=== PATIENT | male | born 1940 | race Caucasian/White ===

== ENCOUNTER 2021-04-26 21:49 | Emergency (ER) | payer OTHER ==
[~2021-04-26] VITALS: Ht 172.7 cm; Wt 76.2 kg
[~2021-04-26 21:49] MED LIST: CEFP200 PO; OMEP20ER PO
[2021-04-26 22:31] LABS: BASOPHILS ABSOLUTE AUTO 0.04 K/mm3 (0.00-0.23); BASOPHILS PERCENT AUTO 1 % (0-2); EOSINOPHILS ABSOLUTE AUTO 0.19 K/mm3 (0.00-0.68); EOSINOPHILS PERCENT AUTO 3 % (0-6); Hematocrit 40.6 % (37.0-53.0); Hemoglobin 14.3 g/dL (13.5-17.5); IMMATURE GRAN ABSOLUTE AUTO 0.03 K/mm3 (0.00-0.10); IMMATURE GRAN PERCENT AUTO 0 % (0-1); LYMPHOCYTES ABSOLUTE AUTO 1.33 K/mm3 (0.84-5.20); LYMPHOCYTES PERCENT AUTO 18 % (21-46); MONOCYTES ABSOLUTE AUTO 0.59 K/mm3 (0.16-1.47); MONOCYTES PERCENT AUTO 8 % (4-13); Mean Corpuscular HGB 31.4 pg (26.0-34.0); Mean Corpuscular HGB Conc 35.2 g/dL (31.5-36.5); Mean Corpuscular Volume 89 fL (80-100); NEUTROPHILS ABSOLUTE AUTO 5.24 K/mm3 (1.96-9.15); NEUTROPHILS PERCENT AUTO 71 % (41-73); Platelet Count 165 K/mm3 (150-400); RDW Coefficient Variation 11.9 % (11.7-14.2); RDW Standard Deviation 38.5 fL (35.1-46.3); Red Blood Cell Count 4.55 M/mm3 (4.30-5.90); White Blood Cell Count 7.42 K/mm3 (4.00-11.30)
[2021-04-26 22:50] LABS: Alanine Aminotransfer (ALT/SGP 34 U/L (12-78); Albumin, Blood 3.6 g/dL (3.4-5.0); Alk Phos 77 U/L (50-136); Anion Gap 6 mmol/L (6-16); Aspartate Aminotrans (AST/SGOT 21 U/L (12-37); Bilirubin, Total 0.7 mg/dL (0.1-1.0); Blood Urea Nitrogen 15 mg/dL (8-24); Bun/Creatinine Ratio 13.5 (12.0-20.0); CO2, Blood 27 mmol/L (21-32); Calcium, Blood 9.2 mg/dL (8.5-10.1); Chloride, Blood 107 mmol/L (98-108); Creatinine, Blood 1.11 mg/dL (0.60-1.20); Globulin, Blood 3.6 g/dL (2.2-4.0); Glomerular Filtration Rate >60 (60-); Glucose, Blood 120 mg/dL (70-99); Sodium, Blood 140 mmol/L (136-145); Total Protein, Blood 7.2 g/dL (6.4-8.2)
== END 2021-04-27 02:45 | disposition home or self-care (01) ==
LOC: ER 21:49
PROVIDERS: Physician Assistant
DX: K59.00 Constipation, unspecified (principal); K21.9 Gastro-esophageal reflux disease without esophagitis; Z91.048 Other nonmedicinal substance allergy status; Z79.899 Other long term (current) drug therapy
CPT/HCPCS: 36415; 74018; 80053; 85025; 99283-25; A9270

== ENCOUNTER 2022-07-05 10:22 | Day surgery (SDC) | payer OTHER ==
[~2022-07-05] VITALS: Ht 172.7 cm; Wt 72.4 kg
[2022-07-05] MEDS ORDERED: Celexa20 MG PO (10:38)
[2022-07-05] MEDS ORDERED: XTANDI80 MG (10:38)
[2022-07-05] MEDS ORDERED: QUET25 (10:39)
[2022-07-05] MEDS ORDERED: OMEP20ER (10:39)
[2022-07-05] MEDS ORDERED: Flomax0.4 MG (10:39)
[2022-07-05] MEDS ORDERED: GABA300 PO (10:40)
--- NOTE | 2022-07-05 10:58 | NUR ---
07/05/22 1058 Bessie Willoughby AT [address]43
--- NOTE | 2022-07-05 11:28 | NUR ---
07/05/22 Tarun8 Pete Gatica PT STATES HE HAS A "IODINE-DWIGHT ALLERGY." HE IS UNABLE TO TOLERATE SHELLFISH. IODINE SKIN TEST ON RIGHT FOREARM SHOWED NO REACTION, NO REDNESS OR INDURATION NOTED.
== END 2022-07-05 11:57 | disposition home or self-care (01) ==
LOC: ORSCSDS 10:22
PROVIDERS: Ophthalmology
PROC: 08DJ3ZZ Extraction of Right Lens, Percutaneous Approach (ICD-10-PCS; principal; 2022-07-05 11:30)
DX: H25.11 Age-related nuclear cataract, right eye (principal); Z96.1 Presence of intraocular lens; K21.9 Gastro-esophageal reflux disease without esophagitis; Z87.891 Personal history of nicotine dependence; Z79.899 Other long term (current) drug therapy
CPT/HCPCS: J2001; J2250; J3010; J3301; J7040; V2632

== ENCOUNTER 2023-11-19 17:19 | Inpatient (IN) | payer OTHER ==
[~2023-11-19] VITALS: Ht 172.7 cm; Wt 70.0 kg
[~2023-11-19 17:19] MED LIST changes: +CEFD300 PO; +Celexa20 MG PO; +ERLEADA60 MG PO; +Flomax0.4 MG; +GABA300 PO; +Norco 10-325 T1 EACH PO; +OMEP20ER; +PANT40 PO; +QUET25 PO; +XTANDI80 MG
[2023-11-19 18:16] LABS: Source, Urine Straight Cath
[2023-11-19 18:20] LABS: Appearance, Urine Hazy (Clear); Bilirubin, Urine Neg (Neg); Blood, Urine 5+ (Neg); Color, Urine Yellow (P-Yellow); Glucose Qualitative, Urine Neg (Neg); Ketones, Urine Neg (Neg); Leukocyte Esterase, Urine 3+ (Neg); Nitrite, Urine Neg (Neg); Protein, Urine 1+ (Neg); Urobilinogen, Urine NORM (Normal); pH, Urine 6.5 (5.0-8.0)
[2023-11-19 18:21] LABS: BASOPHILS ABSOLUTE AUTO 0.04 K/mm3 (0.00-0.23); BASOPHILS PERCENT AUTO 1 % (0-2); EOSINOPHILS ABSOLUTE AUTO 0.11 K/mm3 (0.00-0.68); EOSINOPHILS PERCENT AUTO 1 % (0-6); Hematocrit 37.2 % (37.0-53.0); Hemoglobin 12.8 g/dL (13.5-17.5); IMMATURE GRAN ABSOLUTE AUTO 0.02 K/mm3 (0.00-0.10); IMMATURE GRAN PERCENT AUTO 0 % (0-1); LYMPHOCYTES ABSOLUTE AUTO 1.84 K/mm3 (0.84-5.20); LYMPHOCYTES PERCENT AUTO 24 % (21-46); MONOCYTES ABSOLUTE AUTO 0.45 K/mm3 (0.16-1.47); MONOCYTES PERCENT AUTO 6 % (4-13); Mean Corpuscular HGB 31.3 pg (26.0-34.0); Mean Corpuscular HGB Conc 34.4 g/dL (31.5-36.5); Mean Corpuscular Volume 91 fL (80-100); Mean Platelet Volume 9.9 fL (9.1-12.4); NEUTROPHILS ABSOLUTE AUTO 5.25 K/mm3 (1.96-9.15); NEUTROPHILS PERCENT AUTO 68 % (41-73); Platelet Count 239 K/mm3 (150-400); RDW Coefficient Variation 11.9 % (11.7-14.2); RDW Standard Deviation 39.9 fL (35.1-46.3); Red Blood Cell Count 4.09 M/mm3 (4.30-5.90); White Blood Cell Count 7.71 K/mm3 (4.00-11.30)
[2023-11-19 18:30] LABS: Bacteria Mod /hpf; Red Blood Cells, Urine 25-50 /hpf (0-2); Renal Epithelial Few /hpf (0-Rare); White Blood Cells, Urine 25-50 /hpf (0-5)
[2023-11-19 18:31] LABS: Squamous Epithelial Cells Rare /hpf (Few)
[2023-11-19 18:45] LABS: Magnesium, Blood 2.5 mg/dL (1.6-2.4)
[2023-11-19 18:51] LABS: Alanine Aminotransfer (ALT/SGP 26 U/L (12-78); Albumin, Blood 3.3 g/dL (3.4-5.0); Alk Phos 209 U/L (50-136); Anion Gap 10 mmol/L (3-11); Aspartate Aminotrans (AST/SGOT 53 U/L (12-37); Bilirubin, Total 0.4 mg/dL (0.1-1.0); Blood Urea Nitrogen 14 mg/dL (8-24); Bun/Creatinine Ratio 17.2 (12.0-20.0); CO2, Blood 26 mmol/L (21-32); Calcium, Blood 8.6 mg/dL (8.5-10.1); Chloride, Blood 105 mmol/L (98-108); Creatinine, Blood 0.81 mg/dL (0.60-1.20); Globulin, Blood 3.3 g/dL (2.2-4.0); Glomerular Filtration Rate 89 (60-); Glucose, Blood 108 mg/dL (70-99); Potassium, Blood 3.8 mmol/L (3.5-5.5); Sodium, Blood 137 mmol/L (136-145); Thyroid Stimulating Hormone 0.972 uIU/mL (0.360-4.800); Total Protein, Blood 6.6 g/dL (6.4-8.2)
[2023-11-19 19:02] LABS: Influenza A, PCR NEGATIVE (NEGATIVE); Influenza B, PCR NEGATIVE (NEGATIVE); Resp Syncytial Virus, PCR NEGATIVE (NEGATIVE); SARS-Cov-2 (COVID-19) PCR, MMC NEGATIVE (NEGATIVE)
[2023-11-19] MEDS ORDERED: HYDROcodone 5-APAP 325 TAB PO ONE (19:10)
[2023-11-19] MEDS ORDERED: NS 1,000 ML IV SCH (19:10)
[2023-11-19] MEDS ORDERED: DONE10 PO (19:30)
[2023-11-19] MEDS ORDERED: MELATONIN5 M1 PO (21:06)
[2023-11-19] MEDS ORDERED: Vancomycin HCL 1,250 MG in NS 262.5 ML IV ONE (22:20)
[2023-11-20 00:07] LABS: Ethanol (Alcohol), Blood, Med <3 mg/dL
[2023-11-20] MEDS ORDERED: Trimethoprim/Sulfamethoxazole DS Tab PO SCH (00:13)
[2023-11-20 01:06] LABS: U Amphetamine Screen Not Detected; U Barbituate Screen Not Detected; U Benzodiazapine Screen Not Detected; U Buprenorphine Screen Not Detected; U Cannabinoids Screen Not Detected; U Cocaine Screen Not Detected; U Methadone Screen Not Detected; U Methamphetamine Screen Not Detected; U Opiates Screen DETECTED; U Oxycodone Screen Not Detected; U Phencyclidine Screen Not Detected
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
[2023-11-20 01:28] VITALS: BP 153/69
[2023-11-20] MEDS ORDERED: LACT PO (02:05)
--- NOTE | 2023-11-20 05:50 | NUR ---
SHIFT SUMMARY - SEE PREVIOUS NOTE. NO ACUTE CHANGES SINCE ADMIT THIS AM. PT'S AMS HAS IMPROVED SINCE ADMIT, CONTINUES TO TALK ABOUT PRANKING, BUT DOESN'T ELABORATE WHAT PRANKING OCCURRED. PT IS REQUESTING MELATONIN - HOWEVER I RELAYED THE TIME, AND WHEN IT IS SCHEDULED FOR - SEE EMAR. WILL CONTINUE TO MONITOR PT UNTIL AM SHIFT CHANGE. FLUIDS AT BEDSIDE. CALL LIGHT WITHIN REACH. BED IN LOW POSITION. BED ALARM ON FOR PT SAFETY. PT IS MORE ALERT, RESPONDING TO QUESTIONS APPROPRIATELY.
[2023-11-20] MEDS ORDERED: Pantoprazole Sodium 40 MG Tab PO SCH (06:00)
[2023-11-20 06:43] LABS: International Normalized Ratio 0.97; Prothrombin Time Results 10.4 Sec (9.7-11.5)
[2023-11-20 07:00] LABS: Bilirubin, Total 0.3 mg/dL (0.1-1.0); Bun/Creatinine Ratio 19.8 (12.0-20.0); Calcium, Blood 8.5 mg/dL (8.5-10.1); Creatinine, Blood 0.71 mg/dL (0.60-1.20); Potassium, Blood 3.9 mmol/L (3.5-5.5)
[2023-11-20 07:17] VITALS: BP 137/63
[2023-11-20] MEDS ORDERED: Lactobacil 2-S.Thermo-Bifido 1 1 Cap PO SCH (09:00)
[2023-11-20] MEDS ORDERED: Tamsulosin HCl 0.4 MG Cap PO SCH (09:00)
[2023-11-20] MEDS ORDERED: Citalopram Hydrobromide 20 MG Tab PO SCH (09:00)
[2023-11-20] MEDS ORDERED: Enoxaparin 40 MG/0.4 ML SYR SC SCH (09:00)
[2023-11-20] MEDS ORDERED: Misc. Tablet PO SCH (09:00)
--- NOTE | 2023-11-20 17:31 | NUR ---
PATIENT A/O TO SELF AND FAMILY ONLY. WORKED WITH PT AND IS UP WITH SBA WALKING IN HALLS. FALL PRECAUTIONS IN PLACE. PATIENT INCONTINENT OF URINE, POST VOID RESIDUAL WAS 388 ML'S, MD NOTIFIED. PATIENT REPORTS PAIN TO LEGS AND FEET, NORCO ORDERED TO TREAT. VSS, ON RA. SKIN INTACT. PATIENT TOLERATING REGULAR DIET. PLEASANT AND COOPERATIVE WITH CARE. PATIENT FORGETS LIMITATIONS AND DOES GET VERY FRUSTRATED WHEN BED AND CHAIR ALARM GOES OFF, ABLE TO CALM WITH CONVERSATION.
[2023-11-20] MEDS ORDERED: HYDROcodone 5-APAP 325 TAB PO PRN (17:35)
--- NOTE | 2023-11-20 18:14 | NUR ---
POST VOID RESIDUAL WAS 82 ML'S. ORDERS FOR STRAIGHT CATH IF POST VOID RESIDUAL GREATER THAN 250ML.
[2023-11-20 19:21] VITALS: BP 146/59
[2023-11-20] MEDS ORDERED: QUEtiapine Fumarate 50 MG TAB PO SCH (21:00)
[2023-11-20] MEDS ORDERED: Melatonin 5 MG Tablet PO SCH (21:00)
[2023-11-20] MEDS ORDERED: Gabapentin 300 MG Cap PO SCH (21:00)
[2023-11-20] MEDS ORDERED: Donepezil HCl 5 MG Tab PO SCH (21:00)
[2023-11-20] MEDS ORDERED: Lidocaine 2% Jelly Uro-Jet UR ONE (22:15)
[2023-11-20] MEDS ORDERED: FentaNYL Citrate 50 MCG/ML 2 ML Injection IV ONE (22:15)
[2023-11-21 03:23] VITALS: BP 145/69
[2023-11-21 05:36] LABS: BASOPHILS ABSOLUTE AUTO 0.04 K/mm3 (0.00-0.23); BASOPHILS PERCENT AUTO 1 % (0-2); EOSINOPHILS ABSOLUTE AUTO 0.18 K/mm3 (0.00-0.68); EOSINOPHILS PERCENT AUTO 3 % (0-6); Hemoglobin 11.4 g/dL (13.5-17.5); IMMATURE GRAN ABSOLUTE AUTO 0.03 K/mm3 (0.00-0.10); IMMATURE GRAN PERCENT AUTO 1 % (0-1); LYMPHOCYTES ABSOLUTE AUTO 1.63 K/mm3 (0.84-5.20); LYMPHOCYTES PERCENT AUTO 28 % (21-46); MONOCYTES ABSOLUTE AUTO 0.45 K/mm3 (0.16-1.47); MONOCYTES PERCENT AUTO 8 % (4-13); Mean Corpuscular HGB 30.7 pg (26.0-34.0); Mean Corpuscular HGB Conc 34.5 g/dL (31.5-36.5); Mean Corpuscular Volume 89 fL (80-100); NEUTROPHILS ABSOLUTE AUTO 3.47 K/mm3 (1.96-9.15); NEUTROPHILS PERCENT AUTO 60 % (41-73); Platelet Count 216 K/mm3 (150-400); RDW Standard Deviation 38.7 fL (35.1-46.3); Red Blood Cell Count 3.71 M/mm3 (4.30-5.90)
[2023-11-21 06:06] LABS: Bilirubin, Total 0.3 mg/dL (0.1-1.0); Bun/Creatinine Ratio 10.7 (12.0-20.0); Calcium, Blood 8.4 mg/dL (8.5-10.1); Creatinine, Blood 0.75 mg/dL (0.60-1.20); Potassium, Blood 3.8 mmol/L (3.5-5.5)
--- NOTE | 2023-11-21 06:46 | NUR ---
END OF SHIFT SUMMARY PT ALERT, ORIENTED TO PERSON, PLACE, DATE/TIME. CONFUSED TO REASON IN HOSPITAL, STATING IT IS "BECAUSE OF MY CANCER". PT FIXATING, REPEATING SAME STORIES AND PHRASES CONSTANTLY. SHORT TERM MEMORY LOSS. PVR 490, BLADDER DISTANTION. PT UNABLE TO VOID AFTER SEVERAL ATTEMPTS. STRAIGHT CATH ATTEMPTED UNSUCCESSFULY. NOTIFIED, ORDERS RECD FOR FREITAS PLACEMENT WITH UROJET AND FENTANYL PREMEDICATION. 14FR COUDE INDWELLING CATHETER PLACED WITH SOME DIFFICULTY. 675ML OF CLEAR YELLOW URINE OUTPUT, SOME INITIAL SCANT BLOOD IN TUBING. PT ALSO FIXATING ON CATHETER WHEN AWAKE. NO OTHER EVENTS DURING NIGHT.
[2023-11-21 07:21] VITALS: BP 108/64
[2023-11-21] MEDS ORDERED: HYDROcodone 5-APAP 325 TAB PO PRN (13:25)
[2023-11-21 15:39] VITALS: BP 139/62
[2023-11-21] MEDS ORDERED: NS 250 ML IV PRN (17:20)
[2023-11-21] MEDS ORDERED: Vancomycin HCL 1,500 MG in NS 250 ML IV SCH (18:00)
--- NOTE | 2023-11-21 18:10 | NUR ---
PATIENT A/O TO SELF AND FAMILY ONLY. ANXIOUS ABOUT HAVING A CATHETER. REPETITIVE WITH CONVERSATION. FALL PRECAUTIONS IN PLACE, PATIENT DOES NOT USE CALL LIGHT. SKIN INTACT. AMBUALTES WITH SBA, GAIT STEADY. CONTINENT OF BOWEL. CHROIC PAIN TO FEET, NORCO GIVEN TO TREAT. POSITIVE BLOOD CX TODAY, ABX CHANGED TO IV VANCO. DAUGHTER AND CAREGIVER AT BEDSIDE THIS AFTERNOON.
[2023-11-21 20:32] VITALS: BP 144/70
[2023-11-22 03:24] VITALS: BP 129/56
--- NOTE | 2023-11-22 05:08 | NUR ---
SHIFT SUMMARY PATIENT IS ALERT AND ORIENTED TO SELF ONLY. PATIENT REMAINS ANXIOUS ABOUT CATHETER AND CANT UNDERSTAND WHY HE NEEDS ONE. EDUCATED PATIENT ABOUT WHY PATIENT NEEDS IT. PATIENT REMAINS IMPULSIVE AND CALLS OUT FOR NEEDS. PATIENT HAS NOT COMPLAINED OF PAIN, NAUSEA, SOB OR VOMITTING. FREITAS IS DRAINING TO GRAVITY MAX URINE. BED ALARM IS ON. BED IN LOCKED AND LOWEST POSITION. CALL LIGHT IN PLACE. WILL MONITOR UNTIL SHIFT CHANGE.
[2023-11-22 05:31] LABS: BASOPHILS ABSOLUTE AUTO 0.05 K/mm3 (0.00-0.23); BASOPHILS PERCENT AUTO 1 % (0-2); EOSINOPHILS ABSOLUTE AUTO 0.25 K/mm3 (0.00-0.68); EOSINOPHILS PERCENT AUTO 4 % (0-6); Hemoglobin 11.7 g/dL (13.5-17.5); IMMATURE GRAN ABSOLUTE AUTO 0.02 K/mm3 (0.00-0.10); IMMATURE GRAN PERCENT AUTO 0 % (0-1); LYMPHOCYTES PERCENT AUTO 26 % (21-46); MONOCYTES PERCENT AUTO 6 % (4-13); Mean Corpuscular HGB Conc 34.4 g/dL (31.5-36.5); Mean Corpuscular Volume 90 fL (80-100); Mean Platelet Volume 10.3 fL (9.1-12.4); NEUTROPHILS ABSOLUTE AUTO 3.89 K/mm3 (1.96-9.15); NEUTROPHILS PERCENT AUTO 63 % (41-73); Platelet Count 217 K/mm3 (150-400); RDW Coefficient Variation 12.1 % (11.7-14.2); RDW Standard Deviation 39.7 fL (35.1-46.3); Red Blood Cell Count 3.77 M/mm3 (4.30-5.90); White Blood Cell Count 6.21 K/mm3 (4.00-11.30)
[2023-11-22 05:55] LABS: Albumin, Blood 3.1 g/dL (3.4-5.0); Albumin/Globulin Ratio 1.1 (0.8-1.8); Bilirubin, Total 0.4 mg/dL (0.1-1.0); Bun/Creatinine Ratio 8.7 (12.0-20.0); Calcium, Blood 8.2 mg/dL (8.5-10.1); Creatinine, Blood 0.8 mg/dL (0.60-1.20); Globulin, Blood 2.9 g/dL (2.2-4.0); Potassium, Blood 3.9 mmol/L (3.5-5.5)
[2023-11-22 07:26] VITALS: BP 138/55
[2023-11-22 15:31] VITALS: BP 127/52
[2023-11-22] MEDS ORDERED: Vancomycin HCL 1,000 MG in NS 100 ML IV SCH (18:00)
--- NOTE | 2023-11-22 18:53 | NUR ---
SHIFT SUMMARY: PT ORIENTED TO SELF AND FAMILY. NO ACUTE CHANGES THIS SHIFT. FREITAS IN PLACE DRAINING YELLOW URINE TO GRAVITY. PT FIXED ON CATHETER THIS SHIFT WANTING IT "ATTACHED TO STOMACH LIKE MY BROTHER." ATTEMPTED TO EXPLAIN TO PT THAT CATHETER IS NOT PERMANENT BUT UNABLE TO COMPREHEND. IV IN LFA PAINFUL THIS SHIFT. REPLACED IN LWR. DR. PEARSON ARRIVED THIS AFTERNOON TO GIVE UPDATES TO FAMILY. POS BLOOD CULTURES; IV ABX INFUSED W/O COMPLICATIONS. CALL LIGHT IN REACH. BED IN LOWEST POSITION.
[2023-11-22 19:34] VITALS: BP 158/74
[2023-11-22] MEDS ORDERED: TraZODone HCl 50 MG Tab PO ONE (21:10)
[2023-11-23 03:36] VITALS: BP 126/59
[2023-11-23] MEDS ORDERED: QUEtiapine Fumarate 50 MG TAB PO ONE (04:00)
[2023-11-23 04:56] LABS: BASOPHILS ABSOLUTE AUTO 0.04 K/mm3 (0.00-0.23); BASOPHILS PERCENT AUTO 1 % (0-2); EOSINOPHILS PERCENT AUTO 4 % (0-6); Hematocrit 33.1 % (37.0-53.0); Hemoglobin 11.6 g/dL (13.5-17.5); IMMATURE GRAN ABSOLUTE AUTO 0.03 K/mm3 (0.00-0.10); IMMATURE GRAN PERCENT AUTO 1 % (0-1); LYMPHOCYTES ABSOLUTE AUTO 1.55 K/mm3 (0.84-5.20); LYMPHOCYTES PERCENT AUTO 28 % (21-46); MONOCYTES PERCENT AUTO 7 % (4-13); Mean Corpuscular HGB 31.4 pg (26.0-34.0); Mean Corpuscular Volume 90 fL (80-100); Mean Platelet Volume 10.4 fL (9.1-12.4); NEUTROPHILS ABSOLUTE AUTO 3.31 K/mm3 (1.96-9.15); NEUTROPHILS PERCENT AUTO 60 % (41-73); Platelet Count 210 K/mm3 (150-400); RDW Coefficient Variation 12.1 % (11.7-14.2); RDW Standard Deviation 39.5 fL (35.1-46.3); White Blood Cell Count 5.53 K/mm3 (4.00-11.30)
[2023-11-23 05:20] LABS: Bun/Creatinine Ratio 14.5 (12.0-20.0); Creatinine, Blood 0.76 mg/dL (0.60-1.20)
--- NOTE | 2023-11-23 06:08 | NUR ---
SHIFT SUMMARY PATIENT IS ALERT BUT NOT ORIENTED. PATIENT HAS HAD ANXIETY THIS SHIFT. THIS RN HAS CALLED THE PROVIDER MULTIPLE TIMES FOR ANXIETY AND SLEEP AIDES. PATIENT HAS BEEN MEDICATED FOR PAIN ONCE THIS SHIFT. PATIENT HAS NOT COMPLAINED OF SOB, NAUSEA, OR VOMITTING THIS SHIFT. PATIENTS FREITAS IS PATENT AND DRAINING MAX URINE. BED ALARM IS ON. PATIENT HAS BEEN IMPULSIVE THIS SHIFT. BED IN LOCKED AND LOWEST POSITION. CALL LIGHT IN PLACE. WILL MONITOR UNTIL SHIFT CHANGE.
[2023-11-23 07:30] VITALS: BP 127/54
[2023-11-23 08:20] LABS: 6-ACETYLMORPHINE, URN, QUANT <10 ng/mL; CODEINE, URN, QUANT <20 ng/mL; HYDROCODONE, URN, QUANT 190 ng/mL; HYDROMORPHONE, URN, QUANT <20 ng/mL; MORPHINE, URN, QUANT <20 ng/mL; NORHYDROCODONE, URN, QUANT 1346 ng/mL; NOROXYCODONE, URN, QUANT <20 ng/mL; NOROXYMORPHONE, URN, QUANT <20 ng/mL; OXYCODONE, URN, QUANT <20 ng/mL; OXYMORPHONE, URN, QUANT <20 ng/mL
[2023-11-23 15:21] VITALS: BP 133/67
--- NOTE | 2023-11-23 17:59 | NUR ---
PATIENT IS ALERT AND ORIENTED TO SELF, FAMILY AND FOLLOWING DIRECTION. FREITAS CATHETER WAS PULLED AT 11:30 THIS MORNING. THE FIRST POST VOID BLADDER SCAN REVEALED 90 ML URINE. WILL BLADDER SCAN AGAIN, DR. COURTNEY ORDERED FOR A CATHETER TO BE PLACED FOR A POST VOID BLADDER SCAN GREATER THAN 300 ML. PATIENT HAD A BM TODAY. WILL CONTINUE TO MONITOR
[2023-11-23 19:31] VITALS: BP 145/66
[2023-11-23] MEDS ORDERED: QUEtiapine Fumarate 100 MG Tab PO SCH (21:00)
--- NOTE | 2023-11-24 03:37 | NUR ---
SPACE OPERATIONS OFFICER SUMMARY VSS. FAMILY WAS AT BEDSIDE AT SHIFT START, BUT HAVE SINCE GONE HOME. ALERT TO QUESTIONS ASKED, TOLERATED HS MEDS, NO C/O VOICED. HAS BEEN RESTING QUIETLY WITH FEW INTERRUPTIONS. RESPS EVEN. NO NOTED S/S ACUTE DISTRESS. ABLE TO REPOSITION SELF IN BED WITHOUT ASSIST. RAILS UP X 2, CALL LIGHT IN REACH AND BED IN LOW POSITION FOR SAFETY.
[2023-11-24 04:28] VITALS: BP 123/58
[2023-11-24 06:01] LABS: BASOPHILS ABSOLUTE AUTO 0.07 K/mm3 (0.00-0.23); BASOPHILS PERCENT AUTO 1 % (0-2); EOSINOPHILS ABSOLUTE AUTO 0.27 K/mm3 (0.00-0.68); EOSINOPHILS PERCENT AUTO 4 % (0-6); Hematocrit 35.6 % (37.0-53.0); Hemoglobin 12.2 g/dL (13.5-17.5); IMMATURE GRAN ABSOLUTE AUTO 0.03 K/mm3 (0.00-0.10); IMMATURE GRAN PERCENT AUTO 1 % (0-1); LYMPHOCYTES PERCENT AUTO 28 % (21-46); MONOCYTES ABSOLUTE AUTO 0.47 K/mm3 (0.16-1.47); MONOCYTES PERCENT AUTO 7 % (4-13); Mean Corpuscular HGB 31.1 pg (26.0-34.0); Mean Corpuscular HGB Conc 34.3 g/dL (31.5-36.5); Mean Corpuscular Volume 91 fL (80-100); Mean Platelet Volume 10.2 fL (9.1-12.4); NEUTROPHILS ABSOLUTE AUTO 3.71 K/mm3 (1.96-9.15); NEUTROPHILS PERCENT AUTO 58 % (41-73); Platelet Count 232 K/mm3 (150-400); RDW Coefficient Variation 12.1 % (11.7-14.2); RDW Standard Deviation 40.3 fL (35.1-46.3); Red Blood Cell Count 3.92 M/mm3 (4.30-5.90); White Blood Cell Count 6.35 K/mm3 (4.00-11.30)
[2023-11-24 06:15] LABS: Albumin, Blood 3.2 g/dL (3.4-5.0); Bilirubin, Total 0.3 mg/dL (0.1-1.0); Bun/Creatinine Ratio 18.6 (12.0-20.0); Calcium, Blood 8.3 mg/dL (8.5-10.1); Creatinine, Blood 0.75 mg/dL (0.60-1.20); Globulin, Blood 3.1 g/dL (2.2-4.0); Potassium, Blood 4.3 mmol/L (3.5-5.5); Total Protein, Blood 6.3 g/dL (6.4-8.2)
--- NOTE | 2023-11-24 06:20 | NUR ---
BLADDER SCAN 445, UNABLE TO VOID. FREITAS PLACED PER ORDER, DRAINING LIGHT MAX. STERILE TECHNIQUE USED.
[2023-11-24 07:28] VITALS: BP 144/63
--- NOTE | 2023-11-24 13:20 | NUR ---
PATIENT HEARD CALLING FOR NURSE. UPON ARRIVING, HE WAS FOUND WITH CATHETER TUBING OUT OF STAT LOCK AND IN HIS HAND. ADVISED HE NOT PULL IT. SMALL AMOUNT OF STOOL AROUND RECTUM CLEANED, ATTENDS CHANGED AND REPOSITIONED IN BED ADN ENCOURAGED TO LEAVE TUBING ALONE.
[2023-11-24 15:05] VITALS: BP 149/68
--- NOTE | 2023-11-24 15:11 | NUR ---
PATIENT CAREGIVER, PHOEBE, TO BEDSIDE. ASKING WHAT PLAN IS; SHE HAS NOT HEARD FROM JAMES'S DAUGHTER, MELLO. JAMES HAVING ANXIETY AND RESTLESSNESS. ASKED PHOEBE IF THIS IS NORMAL FOR HIM AND SHE STATES HE DOES WHEN HE IS IN PAIN. HOWEVER, IF ASKED IF HE IS IN PAIN, HE WILL DISAGREE, BUT WHEN OFFERED PAIN MEDICATION, HE EAGERLY AGREES. UPON DISCUSSION WITH PHOEBE, HE USUALLY TAKES 2 TABS TWICE DAILY AT HOME, ROUTINELY. WILL PASS ON TO NEXT SHIFT TO ENSURE PAIN IS BEING ADEQUATELY COVERED.
--- NOTE | 2023-11-24 15:21 | NUR ---
PHOEBE CAME TO HALLWAY TO NOTIFY GENE WANTS TO USE BATHROOM FOR BM. SHE WOULD LIKE TO GET HIM UP TO HELP HIM FEEL SOME FAMILIARITY. OF NOTE, SHE IS NOT LISTED IN CHART A FABRICIO.
--- NOTE | 2023-11-24 15:43 | NUR ---
PATIENT STRUGGLING TO HAVE BM; "HARD MAYTE". ORDER FROM DR. CUELLAR FOR MIRALAX POWDER, NOW. WILL ORDER ADDITIONALLY NEEDED.
[2023-11-24] MEDS ORDERED: Polyethylene Glycol 3350 17 gm PO ONE ×2 (15:45→16:00)
--- NOTE | 2023-11-24 16:12 | NUR ---
SNACK OF COFFEE AND COOKIE ADMINISTERED, BROUGHT IN BY CAREGIVER
--- NOTE | 2023-11-24 17:15 | NUR ---
DAY SHIFT SUMMARY: A&Ox1-3. CAREGIVER, PHOEBE, CAME TO VISIT TODAY, AND THIS HELPED TO ORIENT HIM. SHE DID STATE HE IS ON NORCO 2 TABS BID ROUTINELY AND WILL DENY ANY C/O PAIN, BUT IT WILL MANIFEST IN THE FORM OF ANXIETY, OF WHICH HE HAD BEEN EXHIBITING. ADMINISTERED NORCO AND VISIBLY LESS DESTRESSED WITHIN THE HOUR. BM TODAY WITH C/O RECTAL PAIN: CONSTIPATION VERSUS SKIN IRRITATION VS HEMORRHOID. STOOL SOFTEN ORDERED BOWEL WAS FORMED. CATHETER PATENT AND DRAINING TO GRAVITY. DID REQUIRE SOME REDIRECTION TO ENSURE HE DID NOT PULL ON TUBING; WAS EASILY REDIRECTED. PER DR. COURTNEY, WILL NEED SNF x10 DAYS FOR IV ABx Tx. REPORT TO ONCOMING RN.
[2023-11-24 17:39] LABS: Vancomycin, Trough 7.7 ug/mL (5.0-10.0)
[2023-11-24] MEDS ORDERED: Vancomycin HCL 750 MG in NS 100 ML IV SCH (18:00)
--- NOTE | 2023-11-24 18:50 | NUR ---
QUETIAPINE 100MG GIVEN 2 HOURS EARLY D/T ANXIETY.
[2023-11-24 19:24] VITALS: BP 148/80
[2023-11-24] MEDS ORDERED: QUEtiapine Fumarate 25 MG Tab PO PRN (23:40)
[2023-11-24] MEDS ORDERED: QUEtiapine Fumarate 25 MG Tab PO ONE (23:40)
--- NOTE | 2023-11-25 04:25 | NUR ---
POWER SUPPLY ENGINEER SUMMARY VSS. ALERT AND ORIENTED X 1-2, VERBALIZED SOME PARANOID THOUUGHTS RE FEELING NEEDING A "GUARDIAN" OUTSIDE HIS ROOM FOR HIS SAFETY. WE DISCUSSED THAT HE WS SAFE, BUT HE CONTINUED TO VOICE CONCERNS. ZENA SINGLETARY MAX. TOLERATED HS MEDS, VOICED WANTING MED FOR "ANXIETY". OTIFIED AND PRN OF SEROQUEL OBTAINED, GIVEN - SEE MAR FOR DETAILS. MED EFFECTIVE HAS BEEN RESTING QUIETLY WITH FEW INTERRUPTIONS SINCE. ABLE TO REPOSITION SELF IN BED WITHOUT ASSIST. CALL LIGHT IN REACH, RALS UP X 2 AND BED IN LOW POSITION FOR SAFETY. WILL CONTINUE TO MONITOR.
[2023-11-25 05:41] VITALS: BP 142/67
[2023-11-25 05:56] LABS: BASOPHILS ABSOLUTE AUTO 0.04 K/mm3 (0.00-0.23); BASOPHILS PERCENT AUTO 1 % (0-2); EOSINOPHILS ABSOLUTE AUTO 0.25 K/mm3 (0.00-0.68); EOSINOPHILS PERCENT AUTO 4 % (0-6); Hematocrit 36.9 % (37.0-53.0); Hemoglobin 12.6 g/dL (13.5-17.5); IMMATURE GRAN ABSOLUTE AUTO 0.03 K/mm3 (0.00-0.10); IMMATURE GRAN PERCENT AUTO 0 % (0-1); LYMPHOCYTES ABSOLUTE AUTO 1.94 K/mm3 (0.84-5.20); LYMPHOCYTES PERCENT AUTO 29 % (21-46); MONOCYTES ABSOLUTE AUTO 0.42 K/mm3 (0.16-1.47); MONOCYTES PERCENT AUTO 6 % (4-13); Mean Corpuscular HGB 30.5 pg (26.0-34.0); Mean Corpuscular HGB Conc 34.1 g/dL (31.5-36.5); Mean Corpuscular Volume 89 fL (80-100); Mean Platelet Volume 10.2 fL (9.1-12.4); NEUTROPHILS ABSOLUTE AUTO 4.06 K/mm3 (1.96-9.15); NEUTROPHILS PERCENT AUTO 60 % (41-73); Platelet Count 232 K/mm3 (150-400); RDW Standard Deviation 38.8 fL (35.1-46.3); Red Blood Cell Count 4.13 M/mm3 (4.30-5.90); White Blood Cell Count 6.74 K/mm3 (4.00-11.30)
[2023-11-25 06:20] LABS: Albumin, Blood 3.2 g/dL (3.4-5.0); Bilirubin, Total 0.3 mg/dL (0.1-1.0); Bun/Creatinine Ratio 19.5 (12.0-20.0); Calcium, Blood 8.2 mg/dL (8.5-10.1); Creatinine, Blood 0.77 mg/dL (0.60-1.20); Globulin, Blood 3.3 g/dL (2.2-4.0); Potassium, Blood 4.1 mmol/L (3.5-5.5); Total Protein, Blood 6.5 g/dL (6.4-8.2)
[2023-11-25 07:53] VITALS: BP 147/75
--- NOTE | 2023-11-25 09:00 | NUR ---
pt laying in bed awake a/ox1-2, pleasant and coopertive with care, follows commands well, denies pain, he states he's quite fine this morning, was able to say he's in [place] but not the facility, was fixated on the fact that he doesn't want to get oob but may need to put a strap over him to make sure he doesn't get oob, lungs are clear t/o, on r/a, no cough noted, hrr, no edema noted, ppp+1, cap refill <3 sec, vs stable, afebrile, piv to left hand, site is clear and patent, btx4, abd flat soft nontender, voids via fermin cath at this time due to acute retention, urine clear yellow, skin c/w/d, eve [place], call light in reach.
[2023-11-25 16:03] VITALS: BP 141/75
--- NOTE | 2023-11-25 17:25 | NUR ---
pt up to the chair, daughter in room asking about his pain meds, asked her if he needs them, she said no I want to know when is the last time he had it, it is supposed to be scheduled every 8 hrs, and verbalized that she has spoke to someone every day about it because he wont ask for it. wants to know how to get ahold of the Dr. I assured her I would call and ask, called Dr. Mas and gave her the message. will speak with Dr. Sevilla about it and change if agreeable. pt was medicated, and states his feet are a little tender. call light in reach.
--- NOTE | 2023-11-25 18:08 | NUR ---
pt sitting in chair for dinner, relayed to daughter that call was put out to for her request. pt states his feet feel better and doing fine. no further changes, call light in reach.
[2023-11-25 19:48] VITALS: BP 164/74
[2023-11-25] MEDS ORDERED: HYDROcodone 5-APAP 325 TAB PO ONE (22:00)
--- NOTE | 2023-11-25 22:11 | NUR ---
CALLING OUR, C/O "PANIC ATTACK". AND WAS HAVING SOME PAIN. NOTIFIED AND ORDER FOR NORCO X 1 OBTAINED. PT RECEIVED PRN SEROQUEL AND THE KELSEA RICH ORDERED. INCONT, CHANGED. FREITAS DRAINING MAX. CALL LIGHT IN REACH. WILL CONT TO MONITOR
[2023-11-25] MEDS ORDERED: LORazepam 0.5 MG Tab PO ONE (23:55)
[2023-11-26] MEDS ORDERED: HYDROcodone 5-APAP 325 TAB PO SCH
--- NOTE | 2023-11-26 00:13 | NUR ---
SCREAMING. VOICED EXTREME ANXIETY "FEEL LIKE A CAGED ANIMAL". PARANOID BEHAVIOR CONTINUING. HAD RECEIVED SEROQUEL EARLIER, BUT STILL ANXIOUS. CALL PLACED TO MD, ORDERS FOR ONE TIME PO ATIVAN 0.5 MG OBTAINED AND GIVEN. ATTEMPTS AT VERAL DE ESCALATION CONTINUE. TV ON FOR DISTRACTION. CALL LIGHT IN REACH.
--- NOTE | 2023-11-26 03:12 | NUR ---
EXECUTIVE VICE PRESIDENT SUMMARY VSS. INTERMITTENT VERBALIZATIONS OF FEARS AND ANXIETY. SOME CALLING/YELLING OUT FOR HELP. WHEN STAFF CAME TO BEDSIDE, VOICED FEARS OF FEELING OF BEING LIKE A CAGED ANIMAL. REFUSED TO DISCUSS REASONS OF FEELING THAT WAY. MD DOS SANTOS NOTIFIED AND RECEIVED PO ATIVAN X 1 IN ADITION TO HIS SEROQUEL (SEE MAR FOR DETAILS). ALSO, VOICED SOME PAIN, ONE PO PRN OF NORCO WAS ORDERED EARLY FOR PAIN, PT RECEIVED MED, MED EFFECTIVE AND WAS ASLEEP AT TIME ROUTINE NORCO WAS DUE. ROUTINE MED HELD PT WAS RESTING APPARENTLY COMFORTABLY. HAS BEEN RESTING QUIETLY WITH FEW INTERRUPTIONS SINCE. FREITAS DRAINING MAX. ABLE TO REPOSITION SELF IN BED WITHOUT ASSIST. CALL LIGHT IN REACH, RAILS UP X 2 AND BED IN LOW POSITION FOR SAFETY. WILL CONTINUE TO MONITOR WITH FOCUS ON PT COMFORT.
[2023-11-26 05:20] VITALS: BP 133/63
[2023-11-26 06:10] LABS: BASOPHILS ABSOLUTE AUTO 0.05 K/mm3 (0.00-0.23); BASOPHILS PERCENT AUTO 1 % (0-2); EOSINOPHILS ABSOLUTE AUTO 0.29 K/mm3 (0.00-0.68); EOSINOPHILS PERCENT AUTO 4 % (0-6); Hemoglobin 12.1 g/dL (13.5-17.5); IMMATURE GRAN ABSOLUTE AUTO 0.04 K/mm3 (0.00-0.10); IMMATURE GRAN PERCENT AUTO 1 % (0-1); LYMPHOCYTES ABSOLUTE AUTO 1.61 K/mm3 (0.84-5.20); LYMPHOCYTES PERCENT AUTO 20 % (21-46); MONOCYTES ABSOLUTE AUTO 0.45 K/mm3 (0.16-1.47); MONOCYTES PERCENT AUTO 6 % (4-13); Mean Corpuscular HGB 30.9 pg (26.0-34.0); Mean Corpuscular HGB Conc 34.6 g/dL (31.5-36.5); Mean Corpuscular Volume 89 fL (80-100); Mean Platelet Volume 10.3 fL (9.1-12.4); NEUTROPHILS ABSOLUTE AUTO 5.56 K/mm3 (1.96-9.15); NEUTROPHILS PERCENT AUTO 70 % (41-73); Platelet Count 216 K/mm3 (150-400); RDW Coefficient Variation 12.2 % (11.7-14.2); RDW Standard Deviation 39.8 fL (35.1-46.3); Red Blood Cell Count 3.92 M/mm3 (4.30-5.90)
[2023-11-26 06:43] LABS: Albumin, Blood 3.2 g/dL (3.4-5.0); Albumin/Globulin Ratio 1.1 (0.8-1.8); Bilirubin, Total 0.4 mg/dL (0.1-1.0); Bun/Creatinine Ratio 22.5 (12.0-20.0); Calcium, Blood 8.2 mg/dL (8.5-10.1); Creatinine, Blood 0.76 mg/dL (0.60-1.20); Potassium, Blood 4.2 mmol/L (3.5-5.5); Total Protein, Blood 6.2 g/dL (6.4-8.2)
[2023-11-26 07:55] VITALS: BP 143/59
[2023-11-26] MEDS ORDERED: OLANZapine 5 MG Tab PO ONE (10:55)
--- NOTE | 2023-11-26 12:17 | NUR ---
NOTE: PT'S AGITATION INCREASED LATER THIS MORNING REGARDING HIS CATHETER. PROVIDER NOTIFIED AND ZYPREXA 5MG PO ORDERED. ADMINISTERED TO THE PT.
[2023-11-26 15:11] VITALS: BP 137/79
--- NOTE | 2023-11-26 15:36 | NUR ---
NOTE: PT EXPERIENCING INCREDIBLE ANXIETY AND FEAR FROM THE POTENTIAL OF HIS LEG BAG CATCHING AND PULLING AT THE CATHETER. MOST OF THE MORNING, STAFF WERE ATTEMPTING TO REORIENT AND ASSURE THE PT THAT STAFF WILL MONITORING TUBING AND BAG CLOSELY. STAFF WERE NOT SUCCESSFULL. THE LARGE NIGHT BAG WAS SWITCHED OUT FOR A SMALLER LEG BAG. THIS BAG IS STRAPPED TO HIS R THIGH AND HAS SIGNIFICANTLY LESS TUBING, MAKING THE PT FEEL MORE SECURE. HE ALSO APPEARS LESS ANXIOUS AND LESS AGITATED. THE PROVIDER, DR. ROMO, MADE AWARE AND APPROVED THE BAG CHANGE.
--- NOTE | 2023-11-26 16:13 | NUR ---
NOTE: DURING BED BATH, 3-4 RED RINGS NOTED ON HIS L THIGH. PT DID NOT SEEM BOTHERED BY THEM BUT CALLED THE PROVIDER AND NOTIFIED HIM. THE PROVIDER SAID THAT HE WOULD COME AND ASSESS THE PT.
--- NOTE | 2023-11-26 17:13 | NUR ---
SHIFT SUMMARY PT AOX0-1, HE WAXES AND WANES. SEE OTHER NOTE ABOUT THE EVENTS FROM EARLIER IN THE SHIFT. SINCE THOSE EVENTS, PT HAS BEEN COOPERATIVE. THE LEG BAG HAS PROVIDED THE PT MORE SECURITY AND HAS MADE HIM LESS ANXIOUS. DAUGHTER AT THE BS THIS SHIFT, SHE WAS ABLE TO SPEAK WITH THE DOCTOR. MEDICATED FOR ANXIETY AND PAIN PER THE EMAR. BED BATH AND LINEN CHANGE COMPLETED THIS SHIFT. PT REPOSITIONED T/O THE ENTIRE SHIFT. PT IS REDIRECTABLE BUT CAN BECOME AGITATED AND YELL OUT. CATHETER PATENT AND DRAINING. CALL LIGHT WITHIN REACH, BED LOCKED AND IN THE LOWEST POSITION. WILL REPORT TO ONCOMING NURSE.
[2023-11-26 17:52] LABS: Vancomycin, Trough 11.5 ug/mL (5.0-10.0)
[2023-11-26] MEDS ORDERED: Vancomycin HCL 1,000 MG in NS 100 ML IV SCH (18:00)
[2023-11-26 19:49] VITALS: BP 105/76
--- NOTE | 2023-11-27 04:03 | NUR ---
MEDICAL OFFICER SUMMARY VSS. FREITAS TO LEG BAG ( PT REFUSES TO HAVE FREITAS CONNECTED TO DRAINAGE BAG). VOIDING QS, MULTIPLE EMPTYING SAID BAG. LESS CALLING OUT AND SCREAMING RE PARANOIA THOUGHTS. TOLERATING MEDS WELL. IV VANCO INFUSING FOR INFECTION ORDERED - SEE MAR FOR DETAILS. HAS BEEN RESTING QUIETLY WITH FEW INTERRUPTIONS. RAILS UP X 2, CALL LIGHT IN REACH AND BED IN LOW POSITION FOR SAETY. ABLE TO REPOSITION SELF IN BED WITHOUT ASSIST. WILL CONTINUE TO MONITOR
[2023-11-27 05:00] VITALS: BP 120/59
[2023-11-27 06:32] LABS: BASOPHILS ABSOLUTE AUTO 0.06 K/mm3 (0.00-0.23); BASOPHILS PERCENT AUTO 1 % (0-2); EOSINOPHILS ABSOLUTE AUTO 0.24 K/mm3 (0.00-0.68); EOSINOPHILS PERCENT AUTO 3 % (0-6); Hematocrit 34.6 % (37.0-53.0); Hemoglobin 12.1 g/dL (13.5-17.5); IMMATURE GRAN ABSOLUTE AUTO 0.03 K/mm3 (0.00-0.10); IMMATURE GRAN PERCENT AUTO 0 % (0-1); LYMPHOCYTES ABSOLUTE AUTO 1.55 K/mm3 (0.84-5.20); LYMPHOCYTES PERCENT AUTO 19 % (21-46); MONOCYTES ABSOLUTE AUTO 0.66 K/mm3 (0.16-1.47); MONOCYTES PERCENT AUTO 8 % (4-13); Mean Corpuscular HGB 31.2 pg (26.0-34.0); Mean Corpuscular Volume 89 fL (80-100); Mean Platelet Volume 10.3 fL (9.1-12.4); NEUTROPHILS ABSOLUTE AUTO 5.48 K/mm3 (1.96-9.15); NEUTROPHILS PERCENT AUTO 68 % (41-73); Platelet Count 217 K/mm3 (150-400); RDW Coefficient Variation 12.2 % (11.7-14.2); RDW Standard Deviation 39.8 fL (35.1-46.3); Red Blood Cell Count 3.88 M/mm3 (4.30-5.90); White Blood Cell Count 8.02 K/mm3 (4.00-11.30)
[2023-11-27 07:09] LABS: Albumin, Blood 3.2 g/dL (3.4-5.0); Albumin/Globulin Ratio 1.1 (0.8-1.8); Bilirubin, Total 0.5 mg/dL (0.1-1.0); Bun/Creatinine Ratio 15.4 (12.0-20.0); Calcium, Blood 8.4 mg/dL (8.5-10.1); Creatinine, Blood 0.78 mg/dL (0.60-1.20); Potassium, Blood 4.1 mmol/L (3.5-5.5); Total Protein, Blood 6.2 g/dL (6.4-8.2)
[2023-11-27 07:25] VITALS: BP 132/69
[2023-11-27] MEDS ORDERED: OLANZapine 10 MG Vial IM PRN (09:15)
[2023-11-27] MEDS ORDERED: OLANZapine 5 MG Tab PO PRN (11:03)
[2023-11-27] MEDS ORDERED: Acetaminophen 325 MG TABLET PO PRN (13:35)
[2023-11-27 15:50] VITALS: BP 127/61
--- NOTE | 2023-11-27 17:41 | NUR ---
visit with pt very cordial had trouble tracking conversation. left advance directive packet for daughter will attempt contact and [facility]
--- NOTE | 2023-11-27 18:28 | NUR ---
SHIFT SUMMARY PT AOX2, LESS ANXIOUS TODAY THAN YESTERDAYS SHIFT. MEDICATED PER THE EMAR FOR PAIN AND ANXIETY. LEG BAG IN PLACE AND CATHETER DRAINING. BA ON. PT HAS ATTEMPTED TO MOVE OUT OF THE BED THIS SHIFT BUT IS REDIRECTABLE. HE IS OFTEN APOLOGETIC AND CAN GET EMOTIONAL. DAUGHTER AT THE BS THIS SHIFT AND UPDATES PROVIDED. PLAN IS TO FIND PLACEMENT BUT NO FINAL DECISIONS MADE AT THIS TIME. CALL LIGHT WITHIN REACH, BED LOCKED AND IN THE LOWEST POSITION. WILL REPORT TO ONCOMING NURSE.
[2023-11-27 19:47] VITALS: BP 131/48
[2023-11-28 05:29] VITALS: BP 119/55
--- NOTE | 2023-11-28 05:32 | NUR ---
SHIFT SUMMARY NOC PT A/O X 2-3. PLEASANTLY CONFUSED, BUT COOPERATIVE WITH CARE. VSS. PT HAVING VISUAL HALLUCINATIONS OF UNSPECIFIED TWINS AND A BLOODY CHAIR. PT HAS FREITAS IN PLACE WITH SMALL LEG BAG FOR DRAINAGE BECAUSE PT IS ADAMANT ABOUT NOT HAVING LARGE BAG DUE TO TRIPPING HAZARD. PT BL FOOT PAIN MANAGED PER EMAR. PT AWAITING SNF PLACEMENT FOR DISCHARGE. PT CURRENTLY RESTING WITH BED ALARM ON, BED IN LOWEST POSITION, AND CALL LIGHT WITHIN REACH.
[2023-11-28 05:34] LABS: BASOPHILS ABSOLUTE AUTO 0.06 K/mm3 (0.00-0.23); BASOPHILS PERCENT AUTO 1 % (0-2); EOSINOPHILS ABSOLUTE AUTO 0.23 K/mm3 (0.00-0.68); EOSINOPHILS PERCENT AUTO 3 % (0-6); Hematocrit 34.1 % (37.0-53.0); Hemoglobin 11.7 g/dL (13.5-17.5); IMMATURE GRAN ABSOLUTE AUTO 0.03 K/mm3 (0.00-0.10); IMMATURE GRAN PERCENT AUTO 0 % (0-1); LYMPHOCYTES PERCENT AUTO 19 % (21-46); MONOCYTES ABSOLUTE AUTO 0.58 K/mm3 (0.16-1.47); MONOCYTES PERCENT AUTO 7 % (4-13); Mean Corpuscular HGB 30.8 pg (26.0-34.0); Mean Corpuscular HGB Conc 34.3 g/dL (31.5-36.5); Mean Corpuscular Volume 90 fL (80-100); Mean Platelet Volume 10.5 fL (9.1-12.4); NEUTROPHILS ABSOLUTE AUTO 5.47 K/mm3 (1.96-9.15); NEUTROPHILS PERCENT AUTO 69 % (41-73); Platelet Count 206 K/mm3 (150-400); RDW Coefficient Variation 12.2 % (11.7-14.2); RDW Standard Deviation 40.1 fL (35.1-46.3); White Blood Cell Count 7.87 K/mm3 (4.00-11.30)
[2023-11-28 06:09] LABS: Alanine Aminotransfer (ALT/SGP 21 U/L (12-78); Albumin/Globulin Ratio 0.9 (0.8-1.8); Alk Phos 220 U/L (50-136); Anion Gap 10 mmol/L (3-11); Aspartate Aminotrans (AST/SGOT 35 U/L (12-37); Bilirubin, Total 0.5 mg/dL (0.1-1.0); Blood Urea Nitrogen 11 mg/dL (8-24); Bun/Creatinine Ratio 14.5 (12.0-20.0); CO2, Blood 23 mmol/L (21-32); Chloride, Blood 109 mmol/L (98-108); Creatinine, Blood 0.76 mg/dL (0.60-1.20); Globulin, Blood 3.3 g/dL (2.2-4.0); Glomerular Filtration Rate 90 (60-); Glucose, Blood 117 mg/dL (70-99); Sodium, Blood 138 mmol/L (136-145); Total Protein, Blood 6.3 g/dL (6.4-8.2); Vancomycin, Trough 15.5 ug/mL (5.0-10.0)
[2023-11-28 07:27] VITALS: BP 120/63
[2023-11-28] MEDS ORDERED: LevoFLOXacin 750 MG Tab PO SCH (11:00)
--- NOTE | 2023-11-28 12:02 | NUR ---
EKG done, Dr Tamez made aware.
[2023-11-28 14:54] VITALS: BP 132/62
--- NOTE | 2023-11-28 16:37 | NUR ---
Pt remains A&Ox2-3 this shift. Pleasant and cooperative. Up to chair with 1person ast. VSS. Resp even nolabored on RA. Good appetite this shift. Lee intact. Dyke bag placed this am. Pain managed with po meds. No further needs id or verbalized at this time. Will continue to monitor.
--- NOTE | 2023-11-28 16:53 | NUR ---
Pt's AD from [facility] was faxed over, his code status shows DNR, and daughter agrees with this now that the form has arrived. Unable to reach physician for DNR order, will continue with attempts.
[2023-11-28 19:56] VITALS: BP 121/59
[2023-11-28] MEDS ORDERED: OLANZapine 10 MG Tab PO SCH (21:00)
[2023-11-29 04:33] VITALS: BP 110/58
--- NOTE | 2023-11-29 04:53 | NUR ---
SHIFT SUMMARY NOC PT A/O X 2-3. PLEASANT AND COOPERATIVE WITH CARE. VSS. FEW HOURS INTO SHIFT PT HEARD IN ROOM CUSSING AND MAKING ODD NOISES, CHECKED ON PT AND PT HAD FREITAS GRAVITY IN LAP TRYING TO DISCONNECT IT. PT STATED THAT THEY WERE WORRIED ABOUT BEING ANCHORED DOWN TO BED BY BAG IF THEY NEEDED TO GET UP. PT EDUCATED ON RATIONALE THAT THE GRAVITY BAG HELPS THE URINE FLOW BETTER WITHOUT BACKING UP INTO THE URETHRA, BUT PT WAS UNINTERESTED IN THE EXPLANATION AND DEMANDED A LEG BAG BE PUT BACK INTO PLACE, WHICH IT WAS. NO OTHER ISSUES TO REPORT OTHERWISE PT WAS PLAYING [employer] ON TABLET ON AND OFF T/O SHIFT. PT WILL BE FINISHING UP 2-3 MORE DAYS OF IV ABX BEFORE DISCHARGING HOME TO [facility]. PT CURRENTLY RESTING WITH BED ALARM ON, BED IN LOWEST POSITION, AND CALL LIGHT WITHIN REACH.
[2023-11-29 06:38] LABS: BASOPHILS ABSOLUTE AUTO 0.06 K/mm3 (0.00-0.23); BASOPHILS PERCENT AUTO 1 % (0-2); EOSINOPHILS ABSOLUTE AUTO 0.24 K/mm3 (0.00-0.68); EOSINOPHILS PERCENT AUTO 3 % (0-6); Hematocrit 35.1 % (37.0-53.0); IMMATURE GRAN ABSOLUTE AUTO 0.05 K/mm3 (0.00-0.10); IMMATURE GRAN PERCENT AUTO 1 % (0-1); LYMPHOCYTES ABSOLUTE AUTO 1.49 K/mm3 (0.84-5.20); LYMPHOCYTES PERCENT AUTO 19 % (21-46); MONOCYTES ABSOLUTE AUTO 0.49 K/mm3 (0.16-1.47); MONOCYTES PERCENT AUTO 6 % (4-13); Mean Corpuscular HGB 30.8 pg (26.0-34.0); Mean Corpuscular HGB Conc 34.2 g/dL (31.5-36.5); Mean Corpuscular Volume 90 fL (80-100); Mean Platelet Volume 10.6 fL (9.1-12.4); NEUTROPHILS ABSOLUTE AUTO 5.47 K/mm3 (1.96-9.15); NEUTROPHILS PERCENT AUTO 70 % (41-73); Platelet Count 209 K/mm3 (150-400); RDW Coefficient Variation 12.3 % (11.7-14.2); RDW Standard Deviation 40.4 fL (35.1-46.3)
[2023-11-29 07:09] LABS: Albumin, Blood 2.9 g/dL (3.4-5.0); Albumin/Globulin Ratio 0.9 (0.8-1.8); Bilirubin, Total 0.4 mg/dL (0.1-1.0); Bun/Creatinine Ratio 13.8 (12.0-20.0); Calcium, Blood 8.2 mg/dL (8.5-10.1); Creatinine, Blood 0.8 mg/dL (0.60-1.20); Globulin, Blood 3.4 g/dL (2.2-4.0); Potassium, Blood 3.8 mmol/L (3.5-5.5); Total Protein, Blood 6.3 g/dL (6.4-8.2)
[2023-11-29 07:14] VITALS: BP 133/53
--- NOTE | 2023-11-29 13:42 | NUR ---
HOME MED DOSE CORRECTION- PT HAS APALUTAMIDE 60 MG TAB ORDERED QID. THIS IS A HOME MED, ACORDING TO THE LABEL THE PT IS PRESCRIBED 240MG DAILY ([address] TAB[address] PENDLETON OFFICE FOR CLARIFICATION. THE PT HAS ORDER FOR 240MG PO DAILY. CALLED THE PHARMACY TO VERIFY THERE IS NOTHING WRONG WITH THIS DOSING. CALLED DR PEARSON AND RECIEVED AN ORDER TO CHANGE TO 4 (60 MG) TABS DAILY, 2 TABS NOW THEN 4 TABS ONCE A DAY STARTING TOMORROW.
--- NOTE | 2023-11-29 13:51 | NUR ---
CALLED PT DAUGHTER TO HAVE HER BRING IN THE PT HOME MED AND SHE CLARIFIED THE PT TAKES THE MED SPREAD OUT T/O THE DAY THEY ARE BIG PILLS AND HE TAKES SEVERAL MEDS MULTIPLE DIFFERENT TIMES A DAY. ORDER WILL BE LEFT IT IS. DAUGHTER TO BRING HOME MEDS TODAY.
--- NOTE | 2023-11-29 14:03 | NUR ---
PT UP IN CHAIR EATING BREAKFAST. HE IS CALM AND CONVERSATIONAL. THE PALLIATIVE CARE TEAM RECEIVED PT'S ADVANCED DIRECTIVE FROM THE [facility]. COPY OF ADVANCED DIRECTIVE SENT TO MEDICAL RECORDS, COPY PLACED ON FRONT OF PAPER CHART AND COPY LEFT IN PT'S ROOM FOR PT'S DTR REQUESTED.
[2023-11-29 15:20] VITALS: BP 154/68
[2023-11-29] MEDS ORDERED: Magnesium Hydroxide Conc 10 ML UDC PO PRN (17:20)
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
[2023-11-29 19:51] VITALS: BP 136/63
[2023-11-29] MEDS ORDERED: QUEtiapine Fumarate 50 MG TAB PO SCH (21:00)
[2023-11-29] MEDS ORDERED: QUEtiapine Fumarate 100 MG Tab PO SCH (21:00)
[2023-11-29] MEDS ORDERED: Docusate Sodium 100 MG Cap PO SCH (21:00)
[2023-11-29] MEDS ORDERED: LORazepam 0.5 MG Tab PO ONE (21:00)
[2023-11-30 04:58] VITALS: BP 123/61
[2023-11-30 06:32] LABS: BASOPHILS ABSOLUTE AUTO 0.05 K/mm3 (0.00-0.23); BASOPHILS PERCENT AUTO 1 % (0-2); EOSINOPHILS ABSOLUTE AUTO 0.31 K/mm3 (0.00-0.68); EOSINOPHILS PERCENT AUTO 4 % (0-6); Hematocrit 33.4 % (37.0-53.0); Hemoglobin 11.6 g/dL (13.5-17.5); IMMATURE GRAN ABSOLUTE AUTO 0.06 K/mm3 (0.00-0.10); IMMATURE GRAN PERCENT AUTO 1 % (0-1); LYMPHOCYTES ABSOLUTE AUTO 1.42 K/mm3 (0.84-5.20); LYMPHOCYTES PERCENT AUTO 18 % (21-46); MONOCYTES ABSOLUTE AUTO 0.57 K/mm3 (0.16-1.47); MONOCYTES PERCENT AUTO 7 % (4-13); Mean Corpuscular HGB 31.3 pg (26.0-34.0); Mean Corpuscular HGB Conc 34.7 g/dL (31.5-36.5); Mean Corpuscular Volume 90 fL (80-100); Mean Platelet Volume 10.7 fL (9.1-12.4); NEUTROPHILS ABSOLUTE AUTO 5.43 K/mm3 (1.96-9.15); NEUTROPHILS PERCENT AUTO 69 % (41-73); Platelet Count 232 K/mm3 (150-400); RDW Coefficient Variation 12.1 % (11.7-14.2); RDW Standard Deviation 39.6 fL (35.1-46.3); Red Blood Cell Count 3.71 M/mm3 (4.30-5.90); White Blood Cell Count 7.84 K/mm3 (4.00-11.30)
[2023-11-30 06:51] LABS: Albumin, Blood 2.8 g/dL (3.4-5.0); Albumin/Globulin Ratio 0.8 (0.8-1.8); Bilirubin, Total 0.4 mg/dL (0.1-1.0); Bun/Creatinine Ratio 12.9 (12.0-20.0); Calcium, Blood 7.8 mg/dL (8.5-10.1); Creatinine, Blood 0.7 mg/dL (0.60-1.20); Globulin, Blood 3.4 g/dL (2.2-4.0); Potassium, Blood 4.2 mmol/L (3.5-5.5); Total Protein, Blood 6.2 g/dL (6.4-8.2)
--- NOTE | 2023-11-30 07:34 | NUR ---
Shift Summary Pt was having severe anxiety and some panic attacks at the start of the shift. I tried to talk him through it unsucessfully, called the hospitalist who ordered 0.5 mg PO Ativan. Pt tolerated this well and was able to relax, he slept t/o the night starting around 0000. Pt's powerglide would not draw this AM and was not flushing either, I was not able to start AM vancomyacin. It is currently set up and hanging in the room. Pt has a Lee Catheter with a leg band attachment, it is patent with no issues. Pt is AOx2-3 and somewhat impulsive. Passed info to oncoming nurse.
[2023-11-30 07:35] VITALS: BP 128/61
[2023-11-30] MEDS ORDERED: LORazepam 0.5 MG Tab PO PRN ×2 (12:45→12:50)
[2023-11-30] MEDS ORDERED: Polyethylene Glycol 3350 17 gm PO PRN (12:50)
[2023-11-30 17:04] VITALS: BP 133/80
--- NOTE | 2023-11-30 18:34 | NUR ---
SHIFT SUMMARY- PT HAS HAD NO ACUTE CHANGE T/O THE SHIFT. PSYCH CONSULT WAS CALLED TO PSYCH DR CAKE MIXER WHO WILL SEE THE PT TOMORROW MORNING. PT IN BED, CALL LIGHT IN REACH NO S&S OF DISTRESS NOTED. PT FREITAS IS IN PLACE, PATENT AND DRAINING CLEAR YELLOW URINE TO A LEG BAG (PER PT INSISTANCE).
[2023-11-30 20:22] VITALS: BP 123/63
--- NOTE | 2023-12-01 04:19 | NUR ---
SHIFT SUMMARY: Pt is admitted for acute encephalopathy and is a DNR. ADLs have been SBA -1p depending on activity. Was given routine pain management. Was given ativan x1.
[2023-12-01 04:50] VITALS: BP 127/62
[2023-12-01 05:27] LABS: BASOPHILS ABSOLUTE AUTO 0.05 K/mm3 (0.00-0.23); BASOPHILS PERCENT AUTO 1 % (0-2); EOSINOPHILS ABSOLUTE AUTO 0.29 K/mm3 (0.00-0.68); EOSINOPHILS PERCENT AUTO 4 % (0-6); Hematocrit 31.5 % (37.0-53.0); Hemoglobin 10.7 g/dL (13.5-17.5); IMMATURE GRAN ABSOLUTE AUTO 0.05 K/mm3 (0.00-0.10); IMMATURE GRAN PERCENT AUTO 1 % (0-1); LYMPHOCYTES ABSOLUTE AUTO 1.49 K/mm3 (0.84-5.20); LYMPHOCYTES PERCENT AUTO 20 % (21-46); MONOCYTES ABSOLUTE AUTO 0.67 K/mm3 (0.16-1.47); MONOCYTES PERCENT AUTO 9 % (4-13); Mean Corpuscular HGB 30.9 pg (26.0-34.0); Mean Corpuscular Volume 91 fL (80-100); Mean Platelet Volume 10.4 fL (9.1-12.4); NEUTROPHILS ABSOLUTE AUTO 4.75 K/mm3 (1.96-9.15); NEUTROPHILS PERCENT AUTO 65 % (41-73); Platelet Count 200 K/mm3 (150-400); RDW Coefficient Variation 12.1 % (11.7-14.2); RDW Standard Deviation 40.2 fL (35.1-46.3); Red Blood Cell Count 3.46 M/mm3 (4.30-5.90)
[2023-12-01 05:54] LABS: Anion Gap 9 mmol/L (3-11); Blood Urea Nitrogen 13 mg/dL (8-24); Bun/Creatinine Ratio 18.1 (12.0-20.0); CO2, Blood 24 mmol/L (21-32); Chloride, Blood 108 mmol/L (98-108); Creatinine, Blood 0.72 mg/dL (0.60-1.20); Glomerular Filtration Rate 92 (60-); Glucose, Blood 109 mg/dL (70-99); Sodium, Blood 137 mmol/L (136-145); Vancomycin, Trough 18.3 ug/mL (5.0-10.0)
[2023-12-01 08:00] VITALS: BP 131/62
[2023-12-01 16:20] VITALS: BP 136/63
--- NOTE | 2023-12-01 16:30 | NUR ---
CALLED DR HEARN- PT HAD SCHEDULED NORCO FOR PAIN. CALLED THE PT WAS NOTED TO HAVE A TEMP OF 101.1 ON EVENING VITALS, FAMILY WAS VERY CONCERNED. CALLED TO CLARIFY PT CAN HAVE A DOSE OF TYLENOL AFTER THE NORCO. PER DR HEARN STAFF SHOULD NOT GIVE THE PT TYLENOL AT THIS TIME. HE DC'D THE PT NORCO AND CHANGED TO OXY Q6P. ORDER RECIEVED TO NOT GIVE TYLENOL UNLESS THE PT TEMP GETS OVER 102.5; OR IF HE IS FEELING UNWELL D/T THE FEVER. PT PAIN SEEMS WELL MANAGED WITH THE NORCO. AWARE HE RECIEVED A DOSE OF THAT PRIOR TO MED DC.
[2023-12-01] MEDS ORDERED: OxyCODONE HCL 5 MG TAB PO PRN (16:35)
--- NOTE | 2023-12-01 18:10 | NUR ---
SHIFT SUMMARY- PT ALERT AND ORIENTED TO SELF AND FAMILY. PT HAS PARANOID DELUSIONS AT TIMES. PO ZYPREXA HELPS WITH AGITATION. PER THE PSYCH DOCTOR JOVANNI STAFF ARE NOT TO MEDICATE WITH THE ATIVAN UNLESS THE PT IS HAVING EXTREME ANXIETY OR A PANICK ATTACK. 0.5 MG HAS SHOWN TO BE AN APPROPRIATE DOSE FOR THIS PT AT THIS TIME. PT GOT UP IN THE CHAIR FOR DINNER AND THEN RACED THROUGH EATING AND WANTED TO GET BACK IN BED 4-5 MINTES AFTER GETTING UP. ENCOURAGED THE PT TO REMAIN UPRIGHT FOR 30 MINUTES, THE PT HAS FORGOTTEN AND ASKED EVERY 2 MINUTES TO GO TO BED BECAUSE HE IS DONE EATING, STAFF HAVE REMINDED HIM ABOUT STAYING UP. POWER GLIDE IS IN PLACE AND FLUSHES WELL TODAY. IV ABX INFUSING W/O DIFFICULTY AT THIS TIME. PT IN THE RECLINER, CALL LIGHT IN REACH. NO S&S OF DISTRESS NOTED.
[2023-12-01 20:28] VITALS: BP 132/75
[2023-12-02 03:50] VITALS: BP 130/51
--- NOTE | 2023-12-02 06:01 | NUR ---
SHIFT SUMMARY: Pt is admitted for acute encephalopathy and is a DNR. ADLs have been SBA -1p depending on activity. When asked about pain he stated that he did have some but it was manageable.
[2023-12-02] MEDS ORDERED: OLANZapine 5 MG Tab PO PRN (07:35)
[2023-12-02] MEDS ORDERED: LORazepam 0.5 MG Tab PO PRN (07:35)
[2023-12-02 15:41] VITALS: BP 124/59
--- NOTE | 2023-12-02 18:28 | NUR ---
SHIFT SUMMARY: TMAX 101.9, RESOLVED TO 97.5 WITHOUT INTERVENTION. C/O NEUROPATHY IN FEET, BUT DENIED NEED FOR PAIN MEDICATION. AMBULATED IN HALLWAY X 1, DOESN'T WANT TO MOVE MUCH. HAD ONE EPISODE OF AGITATION/ANXIETY, MEDICATED WITH ZYPREXA WITH GOOD EFFECT. HAS BEEN ACCEPTED TO [facility] TO COMPLETE IV ABX THERAPY, WILL LIKELY D/C TOMORROW.
[2023-12-02 19:30] VITALS: BP 100/67
[2023-12-02] MEDS ORDERED: OLANZapine 5 MG Tab PO SCH (21:00)
[2023-12-03 03:06] VITALS: BP 113/61
--- NOTE | 2023-12-03 04:36 | NUR ---
83 YR M ADMITTED ON 11/22/23. DNR. NO ACUTE CHANGES THIS SHIFT. PT DID NOT EXHIBIT ANXIETY BUT TALKED ABOUT FEELING THAT HE WAS A BURDEN TO HIS DAUGHTER AND THAT SHE IS TIRED OF HIM. HE EXPRESSED SEVERAL TIMES THAT HE DID NOT WANT TO BE A PEST TO THE NURSES AND HE WAS SORRY FOR BEING "NEEDY". HE WAS REASSURED THAT HE IS NOT A PEST AND THAT WE ARE HERE FOR HIM. HE FELL ASLEEP AFTER 2100 MEDS AND HAS MOSTLY SLEPT THROUGH THE NIGHT, ONLY WAKING UP BRIEFLY A COUPLE OF TIMES. HE IS VERY PLEASANT AND COOPERATIVE.
[2023-12-03 05:00] LABS: BASOPHILS ABSOLUTE AUTO 0.06 K/mm3 (0.00-0.23); BASOPHILS PERCENT AUTO 1 % (0-2); EOSINOPHILS ABSOLUTE AUTO 0.09 K/mm3 (0.00-0.68); EOSINOPHILS PERCENT AUTO 1 % (0-6); Hematocrit 30.3 % (37.0-53.0); Hemoglobin 10.5 g/dL (13.5-17.5); IMMATURE GRAN ABSOLUTE AUTO 0.04 K/mm3 (0.00-0.10); IMMATURE GRAN PERCENT AUTO 0 % (0-1); LYMPHOCYTES PERCENT AUTO 15 % (21-46); MONOCYTES ABSOLUTE AUTO 0.75 K/mm3 (0.16-1.47); MONOCYTES PERCENT AUTO 8 % (4-13); Mean Corpuscular HGB 31.1 pg (26.0-34.0); Mean Corpuscular HGB Conc 34.7 g/dL (31.5-36.5); Mean Corpuscular Volume 90 fL (80-100); Mean Platelet Volume 10.5 fL (9.1-12.4); NEUTROPHILS ABSOLUTE AUTO 7.12 K/mm3 (1.96-9.15); NEUTROPHILS PERCENT AUTO 75 % (41-73); Platelet Count 206 K/mm3 (150-400); RDW Coefficient Variation 12.2 % (11.7-14.2); RDW Standard Deviation 39.3 fL (35.1-46.3); Red Blood Cell Count 3.38 M/mm3 (4.30-5.90); White Blood Cell Count 9.46 K/mm3 (4.00-11.30)
[2023-12-03 05:48] LABS: Albumin, Blood 2.5 g/dL (3.4-5.0); Albumin/Globulin Ratio 0.7 (0.8-1.8); Bilirubin, Total 0.5 mg/dL (0.1-1.0); Bun/Creatinine Ratio 16.6 (12.0-20.0); Calcium, Blood 7.4 mg/dL (8.5-10.1); Creatinine, Blood 0.84 mg/dL (0.60-1.20); Globulin, Blood 3.5 g/dL (2.2-4.0); Potassium, Blood 3.7 mmol/L (3.5-5.5)
[2023-12-03 07:38] VITALS: BP 120/53
[2023-12-03 08:02] LABS: Source, Urine Foley catheter
[2023-12-03 08:04] LABS: Bilirubin, Urine Neg (Neg); Blood, Urine 2+ (Neg); Glucose Qualitative, Urine Neg (Neg); Ketones, Urine Neg (Neg); Leukocyte Esterase, Urine Neg (Neg); Nitrite, Urine Neg (Neg); Protein, Urine 2+ (Neg); Specific Gravity, Urine 1.015 (1.003-1.022); Urobilinogen, Urine 1+ (Normal); pH, Urine 6.5 (5.0-8.0)
[2023-12-03 08:13] LABS: Appearance, Urine Hazy (Clear); Color, Urine Pale Yellow (P-Yellow)
[2023-12-03 08:14] LABS: Amorphous Mod (0-Heavy); Bacteria Few /hpf; Hyaline Casts 0-2 /lpf (0-2); Squamous Epithelial Cells Few /hpf (Few); White Blood Cells, Urine 0-2 /hpf (0-5)
[2023-12-03] MEDS ORDERED: VISBIOME 112.51 EACH PO (13:50)
[2023-12-03] MEDS ORDERED: DOCU100 PO (13:51)
[2023-12-03] MEDS ORDERED: OLAN5 PO ×2 (13:52)
[2023-12-03] MEDS ORDERED: MIRALAX17 GM PO (13:53)
[2023-12-03] MEDS ORDERED: Vancomycin1 GM/2501 IV (13:55)
--- NOTE | 2023-12-03 14:07 | NUR ---
TELEPHONE REPORT GIVEN TO JANUARY AT [facility].
[2023-12-03 15:17] VITALS: BP 128/57
--- NOTE | 2023-12-03 15:40 | NUR ---
PATIENT DISCHARGED TO [facility] FOR CONTINUED ABX THERAPY. LUDWIG POWERGLIDE DRESSING AND CAP CHANGED PRIOR TO DEPARTURE. PAPER RX FOR OLANZAPINE PLACED IN PACKET ENVELOPE. ASSISTED TO DRESS IN HIS OWN CLOTHING. OFF UNIT VIA W/C WITH [facility] AT 1540. NO PERSONAL BELONGINGS LEFT BEHIND IN ROOM.
== END 2023-12-03 15:40 | DRG 871 ==
LOC: ER 17:19 → MEDS 17:20 → ENPENDDIS 12-03 12:54 → MEDS 12-03 15:40
PROVIDERS: Family Medicine; Internal Medicine; Student in an Organized Health Care Education/Training Program; ADMIT Internal Medicine
DX: A40.8 Other streptococcal sepsis (principal); G92.8 Other toxic encephalopathy; F03.911 Unspecified dementia, unspecified severity, with agitation; F03.94 Unspecified dementia, unspecified severity, with anxiety; C79.51 Secondary malignant neoplasm of bone; C78.7 Secondary malignant neoplasm of liver and intrahepatic bile duct; N30.90 Cystitis, unspecified without hematuria; E83.41 Hypermagnesemia; G62.9 Polyneuropathy, unspecified; K21.9 Gastro-esophageal reflux disease without esophagitis; C61 Malignant neoplasm of prostate; R33.9 Retention of urine, unspecified; R94.31 Abnormal electrocardiogram [ECG] [EKG]; R50.9 Fever, unspecified; Z91.041 Radiographic dye allergy status; Z98.1 Arthrodesis status; Z79.899 Other long term (current) drug therapy
CPT/HCPCS: 0241U; 36415; 36416; 51701; 51702; 71045; 74177; 80048; 80053; 80202; 81001; 82607; 83605; 83735; 84145; 84443; 85025; 85610; 87040; 87077; 87086; 87184; 87186; 93005; 93010; 93306; 96361-59; 96365-59; 96366; 96372; 97116; 97162; 97165; 97530; 99285-25; A9270; C1751; G0103; G0378; G0480; J1650; J3010; J3370; J7030; J7050; Q9967

== ENCOUNTER 2024-02-02 20:54 | Inpatient (IN) | payer OTHER ==
[~2024-02-02] VITALS: Ht 190.5 cm; Wt 63.2 kg
[~2024-02-02 20:54] MED LIST changes: +DOCU100 PO; +DONE10 PO; -Flomax0.4 MG; +Flomax0.4 MG PO; +LACT PO; +MELATONIN5 M1 PO; +MIRALAX17 GM PO; +OLAN5 PO; +PANT20 PO; -PANT40 PO; +VISBIOME 112.51 EACH PO; +Vancomycin1 GM/2501 IV
[2024-02-02 21:26] LABS: Hematocrit 32.5 % (37.0-53.0); Hemoglobin 10.4 g/dL (13.5-17.5); Mean Corpuscular HGB 28.5 pg (26.0-34.0); Mean Corpuscular Volume 89 fL (80-100); Mean Platelet Volume 9.8 fL (9.1-12.4); Platelet Count 380 K/mm3 (150-400); RDW Coefficient Variation 13.8 % (11.7-14.2); RDW Standard Deviation 45.2 fL (35.1-46.3); Red Blood Cell Count 3.65 M/mm3 (4.30-5.90); White Blood Cell Count 10.27 K/mm3 (4.00-11.30)
[2024-02-02] MEDS ORDERED: ALFU10 PO (21:33)
[2024-02-02 21:38] LABS: Albumin, Blood 2.4 g/dL (3.4-5.0); Albumin/Globulin Ratio 0.6 (0.8-1.8); Bilirubin, Total 0.3 mg/dL (0.1-1.0); Bun/Creatinine Ratio 23.8 (12.0-20.0); Calcium, Blood 8.1 mg/dL (8.5-10.1); Creatinine, Blood 0.92 mg/dL (0.60-1.20); Globulin, Blood 4.1 g/dL (2.2-4.0); Potassium, Blood 4.5 mmol/L (3.5-5.5); Total Protein, Blood 6.5 g/dL (6.4-8.2)
[2024-02-02] MEDS ORDERED: Norco 10-325 T1 EACH PO (21:41)
[2024-02-02] MEDS ORDERED: DONEPEZIL HCL10 MG PO (21:42)
[2024-02-02 21:44] LABS: Source, Urine Foley catheter
[2024-02-02] MEDS ORDERED: NITR100CA PO (21:45)
[2024-02-02] MEDS ORDERED: NS 1,000 ML IV SCH (21:45)
[2024-02-02] MEDS ORDERED: PREDNISOLO15 MG/5 ML PO (21:45)
[2024-02-02 21:46] LABS: BAND PERCENT MAN 28 % (0-8); BASOPHILS PERCENT MAN 0 % (0-2); EOSINOPHILS PERCENT MAN 0 % (0-6); LYMPHOCYTES PERCENT MAN 2 % (21-46); MONOCYTES PERCENT MAN 1 % (4-13); MYELOCYTE PERCENT MAN 1 % (0-0); NEUTROPHILS ABSOLUTE MAN 9.85 K/mm3 (1.96-9.15); SEG NEUTROPHILS PERCENT MAN 68 % (41-73); TOTAL CELLS COUNTED 100
[2024-02-02 21:51] LABS: Bilirubin, Urine Neg (Neg); Blood, Urine 3+ (Neg); Glucose Qualitative, Urine Neg (Neg); Ketones, Urine Neg (Neg); Leukocyte Esterase, Urine 3+ (Neg); Nitrite, Urine Pos (Neg); Protein, Urine 3+ (Neg); Urobilinogen, Urine NORM (Normal); pH, Urine 6.5 (5.0-8.0)
[2024-02-02 21:57] LABS: Appearance, Urine Cloudy (Clear); Color, Urine Yellow (P-Yellow)
[2024-02-02 21:58] LABS: Bacteria Mod /hpf; Red Blood Cells, Urine 0-2 /hpf (0-2); Squamous Epithelial Cells Not Seen /hpf (Few); White Blood Cells, Urine TNTC /hpf (0-5)
[2024-02-02] MEDS ORDERED: CefTRIAXone Sodium 1,000 MG in NS 100 ML IV ONE (22:00)
[2024-02-02] MEDS ORDERED: Acetaminophen 500 MG Tab PO ONE (22:25)
[2024-02-03] VITALS (8 sets, daily range): BP systolic 90–114; BP diastolic 50–58
[2024-02-03] MEDS ORDERED: Acetaminophen 650 MG Supp PR PRN (00:35)
[2024-02-03] MEDS ORDERED: Acetaminophen 325 MG TABLET PO PRN (00:35)
[2024-02-03] MEDS ORDERED: Ondansetron HCl 2 MG / ML 2ML Vial IV PRN (00:35)
[2024-02-03] MEDS ORDERED: OLANZapine ODT 5 MG Tab MM PRN (00:40)
[2024-02-03] MEDS ORDERED: Melatonin 5 MG Tablet PO PRN (00:45)
[2024-02-03] MEDS ORDERED: Polyethylene Glycol 3350 17 gm PO PRN (00:45)
[2024-02-03] MEDS ORDERED: HYDROcodone 10-APAP 325 TAB PO PRN (00:45)
[2024-02-03] MEDS ORDERED: Lactated Ringer's 1,000 ML IV ONE (00:55)
[2024-02-03 03:59] LABS: BASOPHILS ABSOLUTE AUTO 0.03 K/mm3 (0.00-0.23); BASOPHILS PERCENT AUTO 0 % (0-2); EOSINOPHILS PERCENT AUTO 0 % (0-6); Hematocrit 27.4 % (37.0-53.0); Hemoglobin 8.7 g/dL (13.5-17.5); IMMATURE GRAN ABSOLUTE AUTO 0.07 K/mm3 (0.00-0.10); IMMATURE GRAN PERCENT AUTO 1 % (0-1); LYMPHOCYTES ABSOLUTE AUTO 0.72 K/mm3 (0.84-5.20); LYMPHOCYTES PERCENT AUTO 6 % (21-46); MONOCYTES PERCENT AUTO 5 % (4-13); Mean Corpuscular HGB 28.2 pg (26.0-34.0); Mean Corpuscular HGB Conc 31.8 g/dL (31.5-36.5); Mean Corpuscular Volume 89 fL (80-100); Mean Platelet Volume 9.9 fL (9.1-12.4); NEUTROPHILS ABSOLUTE AUTO 10.12 K/mm3 (1.96-9.15); NEUTROPHILS PERCENT AUTO 88 % (41-73); NRBC ABSOLUTE 0.02 K/mm3 (0.00-0.02); NRBC Auto 0.2 /100 WBC (0.0-0.2); Platelet Count 305 K/mm3 (150-400); RDW Coefficient Variation 13.8 % (11.7-14.2); Red Blood Cell Count 3.08 M/mm3 (4.30-5.90); White Blood Cell Count 11.54 K/mm3 (4.00-11.30)
[2024-02-03 04:17] LABS: Albumin, Blood 2.1 g/dL (3.4-5.0); Albumin/Globulin Ratio 0.6 (0.8-1.8); Bilirubin, Total 0.3 mg/dL (0.1-1.0); Bun/Creatinine Ratio 22.5 (12.0-20.0); Calcium, Blood 7.5 mg/dL (8.5-10.1); Creatinine, Blood 1.02 mg/dL (0.60-1.20); Globulin, Blood 3.4 g/dL (2.2-4.0); Magnesium, Blood 2.7 mg/dL (1.6-2.4); Potassium, Blood 4.4 mmol/L (3.5-5.5); Total Protein, Blood 5.5 g/dL (6.4-8.2)
--- NOTE | 2024-02-03 05:26 | NUR ---
ADMISSION/SHIFT SUMMARY REPORT RECEIVED FROM ETIOLOGIST, PATIENT ARRIVED TO PCU 04. SLID OVER TO PCU BED WITH ASSISTANCE OF STAFF. PATIENT MINIMALLY RESPONSIVE. WILL OPEN EYES TO NAME BUT PATIENT QUICKLY CLOSES AND FALLS BACK TO SLEEP. PATIENT VERY PALE IN COLOR. LEFT PUPIL KNOWN TO BE FIXED AND 7mm, RIGHT PUPIL ALSO FIXED AND 1mm, MINIMAL EYE MOVEMENT AND PATIENT DOES NOT TRACK. BP SOFT, MAP 66-68. TELE READING 70s WITH 1st DEGREE HBB, BBB PER OFFICE ELECTRICIAN. CONDOM CATH PLACED. BM ON ADMISSION. ATTENDS IN PLACE. BED ALARM ON FOR SAFETY. FLUIDS INFUSING PER EMAR. NO OTHER CHANGES, WILL REPORT TO DAY SHIFT RN.
[2024-02-03] MEDS ORDERED: Pantoprazole Sodium 20 MG Tab PO SCH (06:00)
[2024-02-03] MEDS ORDERED: APALUTAMIDE 60 MG PO SCH ×2 (08:00→14:00)
[2024-02-03] MEDS ORDERED: Lactobacil 2-S.Thermo-Bifido 1 1 Cap PO SCH (09:00)
[2024-02-03] MEDS ORDERED: Enoxaparin 40 MG/0.4 ML SYR SC SCH (09:00)
[2024-02-03] MEDS ORDERED: Citalopram Hydrobromide 20 MG Tab PO SCH (09:00)
[2024-02-03] MEDS ORDERED: PrednisoLONE Soln 15MG/5ML 5MLUDC Alcohol Free PO SCH (09:00)
[2024-02-03] MEDS ORDERED: ALFUZOSIN HCL 10 MG PO SCH (09:00)
[2024-02-03] MEDS ORDERED: Lidocaine 4% 1 Patch TOP SCH (13:00)
[2024-02-03] MEDS ORDERED: HYDROCODONE BIT10 MG PO (14:22)
[2024-02-03] MEDS ORDERED: NALOXONE H0.4 MG/1 M IM (14:30)
[2024-02-03] MEDS ORDERED: CALCIUM CIT 311 EAC7 PO (14:32)
[2024-02-03] MEDS ORDERED: MULVITA PO (14:33)
[2024-02-03] MEDS ORDERED: CefTRIAXone Sodium 1,000 MG in NS 100 ML IV SCH (15:00)
--- NOTE | 2024-02-03 15:20 | NUR ---
SUPPORTIVE VISIT JAMES IS A WHOM IS RECEIVING PALLIATIVE CARE AT THE [facility]. PT IS ALSO BEING SEEN BY DR. PENDLETON FROM AN ONCOLOGY STANDPOINT, LAST VISIT 01-09-24. DTR REPORTS PT HAD A REPEAT WHOLE BODY SCAN AT [facility] 2 WKS AGO. SHE HAS NOT RCV'D RESULTS FROM THE SCAN. THIS AFTERNOON, JAMES IS ALERT, ORIENTED TO ASIFRMELLO. JAMES IS PLEASANTLY CONFUSED. HE SMILES AND DENIES PAIN. MELLO REPORTS PT HAS HAD AN INCREASE IN URINATION. SHE DID NOT NOTICE A CHANGE IN SMELL OR COLOR OF URINE. "ONE MINUTE HE WAS FINE. I TOUCHED HIM AND HE WAS BURNING UP. 102. THEN HE DIDN'T RESPOND." MA PROVIDED A LIFE ALERT MONITOR, WHICH IS HOW SHE CONTACTED 911. MELLO WANT'S TO CONTINUE WITH CURRENT TX PLAN. PC WILL REMAIN AVAILABLE NEEDED. PRIMARY RN UPDATE RE: ABOVE STATED CONVERSATION.
--- NOTE | 2024-02-03 18:22 | NUR ---
SHIFT SUMMARY; ASSUMED CARE AT 0700. ALERT DURING SHIFT. ORIENTED TO SELF AND SITUATION. AT TIMES APPEARS TO HAVE DIFFICULTY USING RIGHT ARM AND HAND. DAUGHTER STATES THIS IS NOT NORMAL. SPOKE WITH DR. SANTOS ON PHONE TO DISCUSS. 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 HAS A HARD TIME FOLLOWING INSTRUCTIONS. WORKED WITH PT/OT. CONDOM CATH IN PLACE DRAINING TO GRAVITY BAG. 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 NO ACUTE MEDICAL CHANGES, WILL CONTINUE TO MONITOR AND TREAT UNTIL CHANGE OF SHIFT.
[2024-02-03] MEDS ORDERED: Donepezil HCl 5 MG Tab PO SCH (21:00)
[2024-02-03] MEDS ORDERED: QUEtiapine Fumarate 50 MG TAB PO SCH (21:00)
[2024-02-04 03:25] VITALS: BP 116/65
[2024-02-04 04:09] LABS: Phosphorus, Blood 2.8 mg/dL (2.5-4.9)
[2024-02-04 05:15] LABS: BASOPHILS ABSOLUTE AUTO 0.03 K/mm3 (0.00-0.23); BASOPHILS PERCENT AUTO 1 % (0-2); EOSINOPHILS PERCENT AUTO 0 % (0-6); Hemoglobin 8.7 g/dL (13.5-17.5); IMMATURE GRAN ABSOLUTE AUTO 0.06 K/mm3 (0.00-0.10); IMMATURE GRAN PERCENT AUTO 1 % (0-1); LYMPHOCYTES ABSOLUTE AUTO 0.95 K/mm3 (0.84-5.20); LYMPHOCYTES PERCENT AUTO 17 % (21-46); MONOCYTES ABSOLUTE AUTO 0.43 K/mm3 (0.16-1.47); MONOCYTES PERCENT AUTO 8 % (4-13); Mean Corpuscular HGB 28.2 pg (26.0-34.0); Mean Corpuscular HGB Conc 32.2 g/dL (31.5-36.5); Mean Corpuscular Volume 87 fL (80-100); Mean Platelet Volume 10.1 fL (9.1-12.4); NEUTROPHILS ABSOLUTE AUTO 4.19 K/mm3 (1.96-9.15); NEUTROPHILS PERCENT AUTO 74 % (41-73); Platelet Count 296 K/mm3 (150-400); RDW Coefficient Variation 14.3 % (11.7-14.2); RDW Standard Deviation 45.9 fL (35.1-46.3); Red Blood Cell Count 3.09 M/mm3 (4.30-5.90); White Blood Cell Count 5.66 K/mm3 (4.00-11.30)
[2024-02-04 05:22] LABS: Magnesium, Blood 2.6 mg/dL (1.6-2.4)
[2024-02-04 05:34] LABS: Albumin/Globulin Ratio 0.6 (0.8-1.8); Bilirubin, Total 0.3 mg/dL (0.1-1.0); Bun/Creatinine Ratio 26.2 (12.0-20.0); Calcium, Blood 7.5 mg/dL (8.5-10.1); Creatinine, Blood 0.76 mg/dL (0.60-1.20); Globulin, Blood 3.3 g/dL (2.2-4.0); Potassium, Blood 3.8 mmol/L (3.5-5.5); Total Protein, Blood 5.3 g/dL (6.4-8.2)
--- NOTE | 2024-02-04 05:43 | NUR ---
SHIFT SUMMARY MEDICAL NO TELE STATUS PATIENT ALERT AND ORIENTED x3, ABLE TO MAKE NEEDS KNOWN. PATIENT VERY SOFT SPOKEN. WEAK RIGHT ARM, PATIENT SEEMS TO BE FAVORING THAT ARM BY HOLDING IT WITH LEFT HAND. VITALS STABLE DURING THE NIGHT. REMAINED ON RA WITH SPO2 >90%. CONDOM CATH IN PLACE, DRAINING DARK YELLOW URINE. NO OTHER CHANGES THIS SHIFT. WILL REPORT TO DAY SHIFT RN.
[2024-02-04 07:41] VITALS: BP 105/53
--- NOTE | 2024-02-04 10:30 | NUR ---
PT TO ROOM 309. REPORT GIVEN TO MESERET KWONG. HOME MEDICATIONS SENT WITH PT.
[2024-02-04 14:56] VITALS: BP 106/59
[2024-02-04] MEDS ORDERED: Ipratropium/Albuterol SulF 2.5-0.5MG/3 ML Amp INH PRN (18:55)
[2024-02-04 19:05] LABS: PCO2 Arterial 21.6 mmHg (35-45); PO2 Arterial 173 mmHg (80-100); pH Blood Arterial 7.33 (7.35-7.45)
[2024-02-04 19:08] VITALS: BP 156/133
--- NOTE | 2024-02-04 20:17 | NUR ---
SHIFT SUMMARY PATIENT TRANSFERRED TO UNIT AT 1030. HE IS IN NO APPARENT DISTRESS UPON ARRIVAL. HE IS UP IN CHAIR THIS AFTERNOON WITH OT, 1-2 PERSON ASSIST BACK TO BED, WITH DIFFICULTY FOLLOWING COMMANDS. AT 1845 PATIENT FOUND SHAKING AND PALE, HEART RATE 120-140S. HE KEPT SAYING "SOMETHINGS NOT RIGHT". DENIES CHEST PAIN OR PRESSURE. HE DENIES SHORTNESS OF BREATH. O2 SAT 82-84 ON ROOM AIR AND RESPIRATIONS 26-30. PATIENT PLACED ON 10L NONREBREATHER TO SAT AT 100% EKG DONE, DR SANTOS NOTIFIED, LAURIE FOR RT ORDERED, TELEMETRY AND ABG ORDERED. PATIENT CONTINUING TO DECLINE. DR SANTOS RECCOMENDED CALL RAPID IF UNABLE TO GET HIM CALMED DOWN BY REDUCING ANXIETY. RAPID RESPONSE CALLED AT 1855. PATIENT THEN BEGAN TO CALM DOWN AFTER EKG DONE, TALKING HIM DOWN DAUGHTER CAME IN ROOM TO SEE PATIENT AND HIS COLOR BEGAN TO COME BACK TO HIS FACE.
[2024-02-04 21:12] VITALS: BP 117/57
[2024-02-05 03:06] VITALS: BP 103/58
[2024-02-05 07:51] VITALS: BP 99/54
[2024-02-05] MEDS ORDERED: Meropenem 2,000 MG in NS 250 ML IV SCH (08:00)
[2024-02-05 08:10] LABS: Hematocrit 28.8 % (37.0-53.0); Hemoglobin 9.3 g/dL (13.5-17.5); Mean Corpuscular HGB 28.5 pg (26.0-34.0); Mean Corpuscular HGB Conc 32.3 g/dL (31.5-36.5); Mean Corpuscular Volume 88 fL (80-100); Mean Platelet Volume 10.4 fL (9.1-12.4); Platelet Count 289 K/mm3 (150-400); RDW Coefficient Variation 14.3 % (11.7-14.2); RDW Standard Deviation 46.1 fL (35.1-46.3); Red Blood Cell Count 3.26 M/mm3 (4.30-5.90); White Blood Cell Count 8.03 K/mm3 (4.00-11.30)
[2024-02-05 08:36] LABS: Albumin, Blood 2.1 g/dL (3.4-5.0); Albumin/Globulin Ratio 0.6 (0.8-1.8); Bilirubin, Total 0.5 mg/dL (0.1-1.0); Bun/Creatinine Ratio 25.3 (12.0-20.0); Calcium, Blood 7.7 mg/dL (8.5-10.1); Creatinine, Blood 0.87 mg/dL (0.60-1.20); Globulin, Blood 3.5 g/dL (2.2-4.0); Potassium, Blood 4.5 mmol/L (3.5-5.5); Total Protein, Blood 5.6 g/dL (6.4-8.2)
--- NOTE | 2024-02-05 08:52 | NUR ---
SHIFT SUMMARY PT IS A&0 TO SELF AND DAUGHTER. VSS ON RA. PER TELEMETRY PT IS SR @ 87. TOLERATING HIS DIET. CONDOM CATH IN PLACE, DRAINING ADEQUATE AMOUNTS OF CLEAR YELLOW URINE. PT HAD 2 LARGE BM'S THIS SHIFT. BED IN LOWEST POSITION, CALL LIGHT WITHIN REACH. BED ALARM SET FOR PT'S SAFETY.
[2024-02-05 14:53] VITALS: BP 103/69
[2024-02-05 19:38] VITALS: BP 103/59
--- NOTE | 2024-02-05 20:16 | NUR ---
SHIFT SUMMARY PATIENT WITH NO ACUTE EVENTS DURING SHIFT. HE SLEEPS OFTEN BUT WAKES EASILY FOR MEDS AND MEALS. HE IS COOPERATIVE WITH CARE. HE DOES NOT USE CALL LIGHT. FREQUENT ROUNDING PROVIDED. BED IN LOW POSITION, CALL LIGHT IN REACH. BED ALARM ON.
[2024-02-06] MEDS ORDERED: NS 0 ML IV ONE (00:36)
[2024-02-06 03:16] VITALS: BP 109/67
[2024-02-06 07:12] VITALS: BP 108/60
--- NOTE | 2024-02-06 07:34 | NUR ---
Rn shift summary: Patient has been pleasant and cooperative. He needs assist in repositioning self. Pt with lung sounds dim in bases. Heart tones distant. Tele shows SR with BBB rate 80"s. No c/o pain or distress. Did rest well. Call light in reach with freq monitoring.
[2024-02-06] MEDS ORDERED: Meropenem 1,000 MG in NS 100 ML IV ONE (10:05)
[2024-02-06] MEDS ORDERED: NS 250 ML IV PRN (11:30)
[2024-02-06] MEDS ORDERED: NS 250 ML IV ONE (15:12)
[2024-02-06 15:42] VITALS: BP 105/59
--- NOTE | 2024-02-06 17:16 | NUR ---
SHIFT SUMMARY PATIENT UP FOR BREAKFAST AND LUNCH. HE IS ORIENTED TO SELF AND COOPERATIVE WITH CARE. HE IS SLOW TO COMPREHEND BUT IS FOLLOWING COMMANDS DELAYED. HE DEMONSTRATES HOW TO USE CALL LIGHT BUT DOES NOT USE CALL LIGHT. REQUIRES FREQUENT ROUNDING TO ASSESS NEEDS.
--- NOTE | 2024-02-06 18:47 | NUR ---
ASSUMED CARE OF THIS PATIENT AROUND 1600. THE PT IS A/OX2-3 ANSWERS QUESTIONS SLOWLY. PT IS UP WITH MAX ASSIST FROM THE CHAIR TO THE BED. PT APPEARS TO BE BREATHING EASILY ON RA AT THIS TIME. CALL LIGHT IN REACH, BED IN THE LOW POSITION
[2024-02-06 19:31] VITALS: BP 118/68
[2024-02-06] MEDS ORDERED: ACETAMINOPHEN PO (22:51)
[2024-02-06] MEDS ORDERED: [UNRECOGNIZED DRUG - OTHER] PO (22:51)
[2024-02-06] MEDS ORDERED: ENSURE PLUS237 ML PO ×2 (22:52→22:53)
[2024-02-06] MEDS ORDERED: ANECREAM515 GM TOP (22:55)
[2024-02-06] MEDS ORDERED: ELIGARD45 MG SC (22:56)
[2024-02-06] MEDS ORDERED: TAMS.4ER PO (23:00)
[2024-02-06] MEDS ORDERED: MIRALAX17 GM PO (23:02)
--- NOTE | 2024-02-07 03:10 | NUR ---
SHIFT SUMMARY: ALERT AND CONFUSED ORIENTATED TO SELF PT UNAWARE OF SITUATION PLACE OR TIME HW DEMENTIA. FIXED L PUPIAL @ 7 NONREACTIVE. DENIES SOB. TELE SR 80S W/ BBB, PT DENIES CP/PRESSURE. CONDOM CATH IN PLACE DRAINING TO FREITAS. INC OF BOWEL AND BLADDER. BRIEF IN PLACE CHECKED TO ENSURE CD&I. BM 02/06/24. PT TURNED Q2 W/ STAFF ASSIST AND PILLOW PLACEMENT ON BONY PROMINENCES. ABX ADMIN MERREM. SOFT AND BITE SIZED W/ DYSPHAGIA PRECATIONS PT STRUGGLED PILLS IN APPLESAUCE RECOMMEND CRUSHING MOVING FORWARD. VSS. PT TO HAVE PLACEMENT 02/06 PER DOC NOTE W/ THERAPY RECOMMENDING REHAB. PT WILL LIKELY NEED OUTPT ABX ADMIN. BED LOCKED AND LOW W/ FREQUENT ROUNDING TO ENSURE SAFETY. 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
--- NOTE | 2024-02-07 03:57 | NUR ---
TURNS: PT TURNED 2130 (R), 2330 (L), 0215 (R), 0400 (L) MINIMAL ASSISTANCE PT RELUCTANT TO MOVE. PILLOWS TO SUPPORT BONY PROMINENCES.
[2024-02-07 04:05] VITALS: BP 110/59
[2024-02-07 04:54] LABS: BASOPHILS ABSOLUTE AUTO 0.02 K/mm3 (0.00-0.23); BASOPHILS PERCENT AUTO 0 % (0-2); EOSINOPHILS PERCENT AUTO 0 % (0-6); Hematocrit 29.4 % (37.0-53.0); Hemoglobin 9.5 g/dL (13.5-17.5); IMMATURE GRAN PERCENT AUTO 2 % (0-1); LYMPHOCYTES ABSOLUTE AUTO 0.95 K/mm3 (0.84-5.20); LYMPHOCYTES PERCENT AUTO 11 % (21-46); MONOCYTES ABSOLUTE AUTO 0.45 K/mm3 (0.16-1.47); MONOCYTES PERCENT AUTO 5 % (4-13); Mean Corpuscular HGB 28.1 pg (26.0-34.0); Mean Corpuscular HGB Conc 32.3 g/dL (31.5-36.5); Mean Corpuscular Volume 87 fL (80-100); NEUTROPHILS ABSOLUTE AUTO 6.89 K/mm3 (1.96-9.15); NEUTROPHILS PERCENT AUTO 81 % (41-73); Platelet Count 300 K/mm3 (150-400); RDW Coefficient Variation 14.3 % (11.7-14.2); RDW Standard Deviation 45.2 fL (35.1-46.3); Red Blood Cell Count 3.38 M/mm3 (4.30-5.90); White Blood Cell Count 8.51 K/mm3 (4.00-11.30)
[2024-02-07 05:15] LABS: Albumin, Blood 2.1 g/dL (3.4-5.0); Albumin/Globulin Ratio 0.6 (0.8-1.8); Bilirubin, Total 0.4 mg/dL (0.1-1.0); Bun/Creatinine Ratio 27.1 (12.0-20.0); Creatinine, Blood 0.59 mg/dL (0.60-1.20); Globulin, Blood 3.3 g/dL (2.2-4.0); Potassium, Blood 3.9 mmol/L (3.5-5.5); Total Protein, Blood 5.4 g/dL (6.4-8.2)
[2024-02-07] MEDS ORDERED: NS 250 ML IV ONE ×2 (06:10→16:51)
[2024-02-07 07:42] VITALS: BP 108/64
[2024-02-07] MEDS ORDERED: Acetaminophen650 M1 PO (08:21)
[2024-02-07] MEDS ORDERED: ENOX40I SC (08:22)
[2024-02-07] MEDS ORDERED: MEROPENEM IV (08:23)
[2024-02-07 13:49] LABS: SARS-Cov-2 (COVID-19) PCR, MMC NEGATIVE (NEGATIVE)
[2024-02-07 15:10] VITALS: BP 117/55
--- NOTE | 2024-02-07 18:02 | NUR ---
DISCHARGE NOTE/SHIFT SUMMARY PT DISCHARGED TO [facility], REPORT GIVEN TO MESERET GALLARDO. PG IN PLACE, PERIPHERAL IV REMOVED. TELE REMOVED AND RETURNED. DISCHARGE PACKET PROVIDED TO TRANSPORT ALONG WITH HIS HOME MEDICATIONS BROUGHT IN. NO ACUTE EVENTS THIS SHIFT. PT MEDICATED FOR PAIN PER THE [facility]. DAUGHTER UPDATED AND AWARE OF TRANSPORT. CALL LIGHT WAS WITHIN REACH, THE BED WAS IN THE LOWEST POSITION. REPORT GIVEN TO RECEIVING NURSE.
== END 2024-02-07 18:05 | DRG 871 ==
LOC: ER 20:54 → MEDS 02-03 00:34 → PCU 02-03 00:34 → ERHOLD 02-03 00:34 → PCU 02-03 03:29 → MEDS 02-04 10:26 → ENPENDDIS 02-07 09:57 → MEDS 02-07 18:05
PROVIDERS: Emergency Medicine; Family Medicine; Hospitalist; Internal Medicine; ADMIT Student in an Organized Health Care Education/Training Program
PROC: 0T9B70Z Drainage of Bladder with Drainage Device, Via Natural or Artificial Opening (ICD-10-PCS; principal; 2024-02-03)
PROC: 4A033R1 Measurement of Arterial Saturation, Peripheral, Percutaneous Approach (ICD-10-PCS; 2024-02-03)
PROC: 3E03329 Introduction of Other Anti-infective into Peripheral Vein, Percutaneous Approach (ICD-10-PCS; 2024-02-03)
DX: A41.50 Gram-negative sepsis, unspecified (principal); E43 Unspecified severe protein-calorie malnutrition; G93.41 Metabolic encephalopathy; N39.0 Urinary tract infection, site not specified; E87.20 Acidosis, unspecified; F03.911 Unspecified dementia, unspecified severity, with agitation; C78.7 Secondary malignant neoplasm of liver and intrahepatic bile duct; C79.51 Secondary malignant neoplasm of bone; F03.93 Unspecified dementia, unspecified severity, with mood disturbance; Z16.12 Extended spectrum beta lactamase (ESBL) resistance; C61 Malignant neoplasm of prostate; N40.1 Benign prostatic hyperplasia with lower urinary tract symptoms; R33.8 Other retention of urine; Z66 Do not resuscitate; G62.9 Polyneuropathy, unspecified; K21.9 Gastro-esophageal reflux disease without esophagitis; N40.0 Benign prostatic hyperplasia without lower urinary tract symptoms; F32.A Depression, unspecified; G47.00 Insomnia, unspecified; M19.011 Primary osteoarthritis, right shoulder; D64.9 Anemia, unspecified; R65.20 Severe sepsis without septic shock; Z91.041 Radiographic dye allergy status; Z98.1 Arthrodesis status; Z98.890 Other specified postprocedural states; Z79.899 Other long term (current) drug therapy; Z68.22 Body mass index [BMI] 22.0-22.9, adult
CPT/HCPCS: 36415; 36600; 51701; 70450; 71045; 80053; 81001; 82803; 82947; 83605; 83735; 84100; 85025; 85027; 87040; 87077; 87086; 87186; 92526; 92610; 93005; 93010; 94760; 94762; 96365; 97110; 97112; 97162; 97165; 97530; 97535; 99285-25; A9270; C9113; J0696; J1650; J2185; J7030; J7050; J7120; P9612; U0002